=== PATIENT | male | born 1955 | race Caucasian/White ===

== ENCOUNTER 2017-12-23 09:45 | Outpatient (RCR) | payer BC, OTHER, SELFPAY ==
--- NOTE | 2017-11-03 11:07 | PT.OTN ---
Addendum entered and electronically signed by Kaycee Collins, PT 11/03/17 11:53: Transition note: On October 26, 2017 our therapy services consisting of Speech, Occupational, and Physical Therapy transitioned from the [employer] electronic documentation system to a new [employer] electronic documentation system.?? All documentation prior to October 26 can be found under [employer] saved data. From October 26 forward all medical record documentation will be in [employer] 6.1. Original Note: Current Diagnoses Unilateral primary osteoarthritis, left knee (11/03/17) Stiffness of left knee, not elsewhere classified (11/03/17) Weakness (11/03/17) Aftercare following joint replacement surgery (11/03/17) Physical Therapy Treatment Note PT-OP-A Visit Information Start: 11/03/17 10:56 Freq: Status: Active Protocol: Document 11/03/17 10:30 DCW (Rec: 11/03/17 11:05 DCW [id number]) Out-Patient Physical Therapy Visit Information Visit Information Visit Type Treatment Note Visit Note Pt requested an early end to his appointment due to conflicting plans Visit Start Time 10:30 Visit Stop Time 10:55 Total Visit Minutes 25 Visit Number 39 Number of VP CORPORATE DEVELOPMENT Visits 0 Evaluation Information Evaluation Date 05/10/18 PT-OP-C Subjective Start: 11/03/17 10:56 Freq: Status: Active Protocol: Document 11/03/17 10:30 DCW (Rec: 11/03/17 11:05 DCW [id number]) OP-PT Subjective Patient Comments Patient Comments Pt reports the lateral aspect of his left knee is still bothering him quite a bit. Patient Reported Progress Improving PT-OP-Q Treatments Start: 11/03/17 10:56 Freq: Status: Active Protocol: Document 11/03/17 10:30 DCW (Rec: 11/03/17 11:05 DCW [id number]) Cardio Equipment Recumbent Bicycle Duration (Minutes) 6 Resistance 8 Seat Position 6 Gym Equipment Shuttle Recovery Unilateral Squats Resistance 87# Shuttle Recovery Platform Stable Reps/Time 3x15 Bilateral Squats Resistance 162# Shuttle Recovery Platform Stable Reps/Time 3x15 PT-OP-R Modalities Start: 11/03/17 10:56 Freq: Status: Active Protocol: Document 11/03/17 10:30 DCW (Rec: 11/03/17 11:05 [facility] [id number]) Ultrasound Therapy Treatment Left Lateral Knee Treatment Duration (minutes) 8 Patient Position Supine Coupling Medium Ultrasound Gel Frequency Setting (mHz) 3 Mode Setting Continuous Intensity Setting (w/cm2) 1.2 Patient Tolerance Good PT-OP-T Assessment and Plan Start: 11/03/17 10:56 Freq: Status: Active Protocol: Document 11/03/17 10:30 DCW (Rec: 11/03/17 11:05 DCW [id number]) Physical Therapy Assessment Rehab Potential Rehabilitation Potential Good Impairments Impairments Balance Gait Pain ROM Soft Tissue Mobility Progress Towards Goals Progress Towards Goals Progressing Toward Goals Assessment Summary Assessment Discussed current level of function with patient today. Both therapist and patient agree that he has probably reached a bit of a progress plateau, and is likely approaching his discharge point. Pt has a trip out of state next week, and would like to keep his appointments after that in case he runs into any problems, but agrees to play it by ear after that . Physical Therapy Plan Frequency and Duration Frequency of Treatment 2x/Week Plan of Care Start Date 09/28/17 Plan of Care End Date 11/08/17 Therapeutic Interventions Therapeutic Interventions Aquatic Therapy Home Exercise Program Joint Mobilizations Manual Therapy Neuromuscular Re-education Soft Tissue Mobilization Therapeutic Activities Therapeutic Exercises Modalities Cold Pack/Ice Massage Electric Stimulation Hot Packs Ultrasound Next Visit Focus/Plan Next Visit Plan Continued ROM, strengthening, and balance training, progress plyometric exercises.
--- NOTE | 2017-11-29 10:56 | PT.OTN ---
Current Diagnoses Unilateral primary osteoarthritis, left knee (11/29/17) Stiffness of left knee, not elsewhere classified (11/29/17) Weakness (11/29/17) Aftercare following joint replacement surgery (11/29/17) Physical Therapy Treatment Note PT-OP-A Visit Information Start: 11/03/17 10:56 Freq: Status: Active Protocol: Document 11/29/17 09:45 DCW (Rec: 11/29/17 10:56 DCW [id number]) Out-Patient Physical Therapy Visit Information Visit Information Visit Type Progress Note Visit Note Pt was traveling a lot recently, and has therefore not been seen in almost one month Visit Start Time 09:45 Visit Stop Time 10:30 Total Visit Minutes 45 Visit Number 40 Number of HOME HEALTH OUTREACH COORDINATOR Visits 0 Evaluation Information Evaluation Date 05/10/18 PT-OP-B Current Condition Start: 11/29/17 10:38 Freq: Status: Active Protocol: Document 11/29/17 09:45 DCW (Rec: 11/29/17 10:56 DCW [id number]) Current Condition History of Current Condition History of Current Condition Please see Therapy [facility] for pt's complete history and initial evaluation PT-OP-C Subjective Start: 11/03/17 10:56 Freq: Status: Active Protocol: Document 11/29/17 09:45 DCW (Rec: 11/29/17 10:56 DCW [id number]) OP-PT Subjective Patient Comments Patient Comments Pt reports he thinks he would be just fine if not for the continued lateral pain along his left proximal tibia Patient Reported Progress Improving Patient Questionnaires Lower Extremity Functional Scale LEFS Score 58/80 = 72.5% LEFS Impairment 20 to 39% Impaired (Score 48- 62) OP-PT Pain Assessment Location Left Lateral Knee Pain Location Details Gerdy's Tubercle Intensity 3 Scale Used Numeric (1 - 10) PT-OP-G Mobility & Gait Start: 11/29/17 10:38 Freq: Status: Active Protocol: Document 11/29/17 09:45 DCW (Rec: 11/29/17 10:56 DCW [id number]) OP Gait Assessment Gait Gait Assistance Required: Independent Gait Deviations General Gait Pattern Within Normal Limits Stair Climbing Evaluation Evaluation Level of Assist On Stairs Independent Devices Stair Climbing Assistive Devices None PT-OP-K Range of Motion Start: 11/29/17 10:38 Freq: Status: Active Protocol: Document 11/29/17 09:45 DCW (Rec: 11/29/17 10:56 DCW [id number]) Knee Goniometric Range of Motion Knee Measured in Degrees Right Flexion Active (degrees) 130 Flexion Passive (degrees) 135 Extension Active (degrees) 2 Extension Passive (degrees) 0 Left Flexion Active (degrees) 118 Flexion Passive (degrees) 120 Extension Active (degrees) 2 Extension Passive (degrees) 0 PT-OP-M Strength Start: 11/29/17 10:38 Freq: Status: Active Protocol: Document 11/29/17 09:45 DCW (Rec: 11/29/17 10:56 DCW [id number]) Hip Strength Hip Manual Muscle Testing Right Flexion (L2) 5 Normal Abduction 5 Normal Adduction 5 Normal Left Flexion (L2) 5 Normal Abduction 5 Normal Adduction 5 Normal Knee Strength Knee Manual Muscle Testing Right Flexion (S2) 5 Normal Extension (L3) 5 Normal Left Flexion (S2) 5 Normal Extension (L3) 5 Normal PT-OP-Q Treatments Start: 11/03/17 10:56 Freq: Status: Active Protocol: Document 11/29/17 09:45 DCW (Rec: 11/29/17 10:56 DCW [id number]) Cardio Equipment Recumbent Bicycle Duration (Minutes) 6 Resistance 8 Seat Position 6 Gym Equipment Shuttle Recovery Unilateral Squats Resistance 125# Shuttle Recovery Platform Stable Reps/Time 3x15 Bilateral Squats Resistance 187# Shuttle Recovery Platform Stable Reps/Time 3x15 Shuttle Balance 1 Details Red - Staggered Stance, Lateral Weight Shift Therapeutic Exercises Standing Exercises 1 Standing Exercise Name Gastroc Stretch Side bilateral Equipment Used LUCINA Manual Therapy Treatment Manual Techniques 1 Type Passive knee ROM Body Location Left knee Body Position Supine PT-OP-R Modalities Start: 11/03/17 10:56 Freq: Status: Active Protocol: Document 11/29/17 09:45 DCW (Rec: 11/29/17 10:56 DCW [id number]) Ultrasound Therapy Treatment Left Lateral Knee Treatment Duration (minutes) 8 Patient Position Supine Coupling Medium Ultrasound Gel Frequency Setting (mHz) 3 Mode Setting Continuous Intensity Setting (w/cm2) 1.2 PT-OP-T Assessment and Plan Start: 11/03/17 10:56 Freq: Status: Active Protocol: Document 11/29/17 09:45 DCW (Rec: 11/29/17 10:56 DCW [id number]) Physical Therapy Assessment Rehab Potential Rehabilitation Potential Good Impairments Impairments Balance Gait Pain ROM Soft Tissue Mobility Goals Four Impairment ROM Short Term Goal (STG) Left knee PROM 0-120 degrees STG Duration Met Dip Tube Assembler Machine Goal (LTG) Left knee AROM 0-120 degrees LTG Duration 12/29/17 Three Impairment Strength Short Term Goal (STG) Pt left LE MMT 5/5 in all tested areas STG Duration Met Two Impairment LEFS Senior Living Goal (LTG) Pt to score 60/80 = 75% on LEFS LTG Duration 12/29/17 One Impairment Pain Dip Tube Assembler Machine Goal (LTG) Pt to report at worst 1/10 pain LTG Duration 12/29/17 Assessment Summary Assessment Pt is nearing discharge, would like a few more appointments to help decrease lateral knee pain. Pt AROM is close to goal of 0-120, however has not improved at all over his recent hiatus from therapy. Physical Therapy Plan Frequency and Duration Frequency of Treatment 2x/Week Duration of Treatment 6 weeks Plan of Care Start Date 11/29/17 Plan of Care End Date 01/09/18 Therapeutic Interventions Therapeutic Interventions Aquatic Therapy Home Exercise Program Joint Mobilizations Manual Therapy Neuromuscular Re-education Soft Tissue Mobilization Therapeutic Activities Therapeutic Exercises Modalities Cold Pack/Ice Massage Electric Stimulation Hot Packs Ultrasound Next Visit Focus/Plan Next Note Type Treatment Note Next Visit Plan Continued ROM, strengthening, and balance training, progress plyometric exercises. Please Sign and Return: I have reviewed this Plan of Care and certify that the skilled therapy services above are required to meet the patient?s needs. Physician Signature Date Printed Name and Credentials Clinical Instructor Signature Printed Name and Credentials
--- NOTE | 2017-11-29 10:57 | PT.OPPOC ---
Current Diagnoses Unilateral primary osteoarthritis, left knee (11/29/17) Stiffness of left knee, not elsewhere classified (11/29/17) Weakness (11/29/17) Aftercare following joint replacement surgery (11/29/17) Provider Visit Care Team Role Provider Type ANGELO Umanzor Primary Care Provider Advanced Practioner Clinician Specialty: Family Practice Address: [address] [place] [address], [id number] Email: [email or web address] Sudeep Suarez PA-C Attending Provider Non-Staff Specialty: Medical Address: [address] [place] [address], [id number] Phone: Fax: Email: Plan Of Care PT-OP-T Assessment and Plan Start: 11/03/17 10:56 Freq: Status: Active Protocol: Document 11/29/17 09:45 DCW (Rec: 11/29/17 10:56 DCW [id number]) Physical Therapy Assessment Rehab Potential Rehabilitation Potential Good Impairments Impairments Balance Gait Pain ROM Soft Tissue Mobility Goals Four Impairment ROM Short Term Goal (STG) Left knee PROM 0-120 degrees STG Duration Met Mcfp Goal (LTG) Left knee AROM 0-120 degrees LTG Duration 12/29/17 Three Impairment Strength Short Term Goal (STG) Pt left LE MMT 5/5 in all tested areas STG Duration Met Two Impairment LEFS Mcfp Goal (LTG) Pt to score 60/80 = 75% on LEFS LTG Duration 12/29/17 One Impairment Pain Mcfp Goal (LTG) Pt to report at worst 1/10 pain LTG Duration 12/29/17 Assessment Summary Assessment Pt is nearing discharge, would like a few more appointments to help decrease lateral knee pain. Pt AROM is close to goal of 0-120, however has not improved at all over his recent hiatus from therapy. Physical Therapy Plan Frequency and Duration Frequency of Treatment 2x/Week Duration of Treatment 6 weeks Plan of Care Start Date 11/29/17 Plan of Care End Date 01/09/18 Therapeutic Interventions Therapeutic Interventions Aquatic Therapy Home Exercise Program Joint Mobilizations Manual Therapy Neuromuscular Re-education Soft Tissue Mobilization Therapeutic Activities Therapeutic Exercises Modalities Cold Pack/Ice Massage Electric Stimulation Hot Packs Ultrasound Next Visit Focus/Plan Next Note Type Treatment Note Next Visit Plan Continued ROM, strengthening, and balance training, progress plyometric exercises. Plan of Care Dates Plan of Care Start Date 11/29/17 Plan of Care End Date 01/09/18 Please Sign and Return: I have reviewed this Plan of Care and certify that the skilled therapy services above are required to meet the patient?s needs. Physician Signature Date Printed Name and Credentials Clinical Instructor Signature Printed Name and Credentials
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
--- NOTE | 2017-12-16 10:29 | PT.OTN ---
Current Diagnoses Unilateral primary osteoarthritis, left knee (12/16/17) Stiffness of left knee, not elsewhere classified (12/16/17) Weakness (12/16/17) Aftercare following joint replacement surgery (12/16/17) Physical Therapy Treatment Note PT-OP-A Visit Information Start: 11/03/17 10:56 Freq: Status: Active Protocol: Document 12/16/17 09:45 DCW (Rec: 12/16/17 10:29 DCW [id number]) Out-Patient Physical Therapy Visit Information Visit Information Visit Type Treatment Note Visit Start Time 09:45 Visit Stop Time 10:30 Total Visit Minutes 45 Visit Number 42 Number of LINUX SYSTEM ADMINISTRATOR Visits 0 Evaluation Information Evaluation Date 05/10/17 PT-OP-B Current Condition Start: 11/29/17 10:38 Freq: Status: Active Protocol: Document 11/29/17 09:45 DCW (Rec: 11/29/17 10:56 DCW [id number]) Current Condition History of Current Condition History of Current Condition Please see Therapy Source for pt's complete history and initial evaluation PT-OP-C Subjective Start: 11/03/17 10:56 Freq: Status: Active Protocol: Document 12/16/17 09:45 DCW (Rec: 12/16/17 10:29 DCW [id number]) OP-PT Subjective Patient Comments Patient Comments Pt reports he has spent the past 10 [place] [facility], and everything went well. Pt could notice fatigue and pain setting in as the day wore on, but overall was happy with how things went. Pt admits his lateral knee still bothers him most when sleeping. PT-OP-Q Treatments Start: 11/03/17 10:56 Freq: Status: Active Protocol: Document 12/16/17 09:45 DCW (Rec: 12/16/17 10:29 DCW [id number]) Cardio Equipment Recumbent Bicycle Duration (Minutes) 6 Resistance 8 Seat Position 3 Gym Equipment Shuttle Recovery Unilateral Squats Resistance 125# Shuttle Recovery Platform Stable Reps/Time 3x15 Bilateral Squats Resistance 187# Shuttle Recovery Platform Stable Reps/Time 3x15 Shuttle Balance 1 Details Red - Staggered Stance, Lateral Weight Shift Therapeutic Exercises Standing Exercises 2 Standing Exercise Name Soleus Stretch Resistance bilateral Reps/Minutes LUCINA 1 Standing Exercise Name Gastroc Stretch Side bilateral Equipment Used LUCINA Other Exercises 3 Other Exercise Name Lateral Single-leg hopping 1 Other Exercise Name Lunge walking Side bilateral Reps/Minutes x4 laps along rail Neuro Re-Education Treatment Balance Activities 1 Details SLS on Air Disc Equipment Teal Air Disc PT-OP-R Modalities Start: 11/03/17 10:56 Freq: Status: Active Protocol: Document 12/16/17 09:45 DCW (Rec: 12/16/17 10:29 DCW [id number]) Ultrasound Therapy Treatment Left Lateral Knee Treatment Duration (minutes) 8 Patient Position Supine Coupling Medium Ultrasound Gel Frequency Setting (mHz) 3 Mode Setting Continuous Intensity Setting (w/cm2) 1.2 PT-OP-T Assessment and Plan Start: 11/03/17 10:56 Freq: Status: Active Protocol: Document 12/16/17 09:45 DCW (Rec: 12/16/17 10:29 DCW [id number]) Physical Therapy Assessment Rehab Potential Rehabilitation Potential Good Impairments Impairments Balance Gait Pain ROM Soft Tissue Mobility Goals Four Impairment ROM Short Term Goal (STG) Left knee PROM 0-120 degrees STG Duration Met Senior Living Goal (LTG) Left knee AROM 0-120 degrees LTG Duration 12/29/17 Three Impairment Strength Short Term Goal (STG) Pt left LE MMT 5/5 in all tested areas STG Duration Met Two Impairment LEFS Machine Set Up Operator Goal (LTG) Pt to score 60/80 = 75% on LEFS LTG Duration 12/29/17 One Impairment Pain Senior Living Goal (LTG) Pt to report at worst 1/10 pain LTG Duration 12/29/17 Assessment Summary Assessment Pt continues to improve. After discussion between patient and therapist, pt agreed that discharge following next week' s appointments is a good idea. Physical Therapy Plan Frequency and Duration Frequency of Treatment 2x/Week Duration of Treatment 6 weeks Plan of Care Start Date 11/29/17 Plan of Care End Date 01/09/18 Therapeutic Interventions Therapeutic Interventions Aquatic Therapy Home Exercise Program Joint Mobilizations Manual Therapy Neuromuscular Re-education Soft Tissue Mobilization Therapeutic Activities Therapeutic Exercises Modalities Cold Pack/Ice Massage Electric Stimulation Hot Packs Ultrasound Next Visit Focus/Plan Next Note Type Treatment Note Next Visit Plan Continued ROM, strengthening, and balance training, progress plyometric exercises.
--- NOTE | 2017-12-20 10:29 | PT.OTN ---
Current Diagnoses Unilateral primary osteoarthritis, left knee (12/20/17) Stiffness of left knee, not elsewhere classified (12/20/17) Weakness (12/20/17) Aftercare following joint replacement surgery (12/20/17) Physical Therapy Treatment Note PT-OP-A Visit Information Start: 11/03/17 10:56 Freq: Status: Active Protocol: Document 12/20/17 09:45 DCW (Rec: 12/20/17 10:29 DCW [id number]) Out-Patient Physical Therapy Visit Information Visit Information Visit Type Treatment Note Visit Start Time 09:45 Visit Stop Time 10:30 Total Visit Minutes 45 Visit Number 43 Number of SPORTS EQUIPMENT RACKER Visits 0 Evaluation Information Evaluation Date 05/10/17 PT-OP-B Current Condition Start: 11/29/17 10:38 Freq: Status: Active Protocol: Document 11/29/17 09:45 DCW (Rec: 11/29/17 10:56 DCW [id number]) Current Condition History of Current Condition History of Current Condition Please see Therapy Source for pt's complete history and initial evaluation PT-OP-C Subjective Start: 11/03/17 10:56 Freq: Status: Active Protocol: Document 12/20/17 09:45 DCW (Rec: 12/20/17 10:29 DCW [id number]) OP-PT Subjective Patient Comments Patient Comments Pt continues to complain of lateral knee pain, but everything else is going very well. PT-OP-Q Treatments Start: 11/03/17 10:56 Freq: Status: Active Protocol: Document 12/20/17 09:45 DCW (Rec: 12/20/17 10:29 DCW [id number]) Cardio Equipment Recumbent Bicycle Duration (Minutes) 6 Resistance 8 Seat Position 3 Gym Equipment Shuttle Recovery Unilateral Squats Resistance 125# Shuttle Recovery Platform Stable Reps/Time 3x15 Bilateral Squats Resistance 187# Shuttle Recovery Platform Stable Reps/Time 3x15 Shuttle Balance 1 Details Red - Staggered Stance, Lateral Weight Shift Therapeutic Exercises Standing Exercises 2 Standing Exercise Name Soleus Stretch Resistance bilateral Reps/Minutes LUCINA 1 Standing Exercise Name Gastroc Stretch Side bilateral Equipment Used LUCINA Other Exercises 3 Other Exercise Name Lateral Single-leg hopping 1 Other Exercise Name Lunge walking Side bilateral Reps/Minutes x4 laps along rail Neuro Re-Education Treatment Balance Activities 1 Details SLS on Air Disc Equipment Teal Air Disc PT-OP-R Modalities Start: 11/03/17 10:56 Freq: Status: Active Protocol: Document 12/20/17 09:45 DCW (Rec: 12/20/17 10:29 DCW [id number]) Ultrasound Therapy Treatment Left Lateral Knee Treatment Duration (minutes) 8 Patient Position Supine Coupling Medium Ultrasound Gel Frequency Setting (mHz) 3 Mode Setting Continuous Intensity Setting (w/cm2) 1.2 PT-OP-T Assessment and Plan Start: 11/03/17 10:56 Freq: Status: Active Protocol: Document 12/20/17 09:45 DCW (Rec: 12/20/17 10:29 DCW [id number]) Physical Therapy Assessment Rehab Potential Rehabilitation Potential Good Impairments Impairments Balance Gait Pain ROM Soft Tissue Mobility Goals Four Impairment ROM Short Term Goal (STG) Left knee PROM 0-120 degrees STG Duration Met Web Ui Designer Goal (LTG) Left knee AROM 0-120 degrees LTG Duration 12/29/17 Three Impairment Strength Short Term Goal (STG) Pt left LE MMT 5/5 in all tested areas STG Duration Met Two Impairment LEFS Web Ui Designer Goal (LTG) Pt to score 60/80 = 75% on LEFS LTG Duration 12/29/17 One Impairment Pain Web Ui Designer Goal (LTG) Pt to report at worst 1/10 pain LTG Duration 12/29/17 Assessment Summary Assessment Pt is still agreeable to discharge following his nexty visit. Shows great progress in ROM and strength, only continuing deficit is lateral knee pain. Physical Therapy Plan Frequency and Duration Frequency of Treatment 2x/Week Duration of Treatment 6 weeks Plan of Care Start Date 11/29/17 Plan of Care End Date 01/09/18 Therapeutic Interventions Therapeutic Interventions Aquatic Therapy Home Exercise Program Joint Mobilizations Manual Therapy Neuromuscular Re-education Soft Tissue Mobilization Therapeutic Activities Therapeutic Exercises Modalities Cold Pack/Ice Massage Electric Stimulation Hot Packs Ultrasound Next Visit Focus/Plan Next Note Type Discharge Summary Next Visit Plan Continue ongoing POC
--- NOTE | 2017-12-23 10:17 | PT.OTN ---
Current Diagnoses Unilateral primary osteoarthritis, left knee (12/23/17) Stiffness of left knee, not elsewhere classified (12/23/17) Weakness (12/23/17) Aftercare following joint replacement surgery (12/23/17) Physical Therapy Treatment Note PT-OP-A Visit Information Start: 11/03/17 10:56 Freq: Status: Active Protocol: Document 12/23/17 09:45 DCW (Rec: 12/23/17 10:17 DCW [id number]) Out-Patient Physical Therapy Visit Information Visit Information Visit Type Discharge Summary Visit Note Pt requests early finish to today's appointment, as he has oral surgery scheduled shortly afterward. Visit Start Time 09:45 Visit Stop Time 10:15 Total Visit Minutes 30 Visit Number 44 Number of ELECTRONICS ASSEMBLER Visits 0 Evaluation Information Evaluation Date 05/10/17 PT-OP-B Current Condition Start: 11/29/17 10:38 Freq: Status: Active Protocol: Document 11/29/17 09:45 DCW (Rec: 11/29/17 10:56 DCW [id number]) Current Condition History of Current Condition History of Current Condition Please see Therapy Source for pt's complete history and initial evaluation PT-OP-C Subjective Start: 11/03/17 10:56 Freq: Status: Active Protocol: Document 12/23/17 09:45 DCW (Rec: 12/23/17 10:17 DCW [id number]) OP-PT Subjective Patient Comments Patient Comments Doing well today, although he does note a little increased stiffness following a seven mile walk last night. PT-OP-G Mobility & Gait Start: 11/29/17 10:38 Freq: Status: Active Protocol: Document 11/29/17 09:45 DCW (Rec: 11/29/17 10:56 DCW [id number]) OP Gait Assessment Gait Gait Assistance Required: Independent Gait Deviations General Gait Pattern Within Normal Limits Stair Climbing Evaluation Evaluation Level of Assist On Stairs Independent Devices Stair Climbing Assistive Devices None PT-OP-K Range of Motion Start: 11/29/17 10:38 Freq: Status: Active Protocol: Document 12/23/17 09:45 DCW (Rec: 12/23/17 10:17 DCW [id number]) Knee Goniometric Range of Motion Knee Measured in Degrees Left Flexion Active (degrees) 118 Flexion Passive (degrees) 124 Extension Active (degrees) 2 Extension Passive (degrees) 0 PT-OP-M Strength Start: 11/29/17 10:38 Freq: Status: Active Protocol: Document 11/29/17 09:45 DCW (Rec: 11/29/17 10:56 DCW [id number]) Hip Strength Hip Manual Muscle Testing Right Flexion (L2) 5 Normal Abduction 5 Normal Adduction 5 Normal Left Flexion (L2) 5 Normal Abduction 5 Normal Adduction 5 Normal Knee Strength Knee Manual Muscle Testing Right Flexion (S2) 5 Normal Extension (L3) 5 Normal Left Flexion (S2) 5 Normal Extension (L3) 5 Normal PT-OP-Q Treatments Start: 11/03/17 10:56 Freq: Status: Active Protocol: Document 12/23/17 09:45 DCW (Rec: 12/23/17 10:17 DCW [id number]) Cardio Equipment Recumbent Bicycle Duration (Minutes) 6 Resistance 8 Seat Position 3 Manual Therapy Treatment Manual Techniques 1 Type Passive knee ROM Body Location Left knee Body Position Supine PT-OP-R Modalities Start: 11/03/17 10:56 Freq: Status: Active Protocol: Document 12/23/17 09:45 DCW (Rec: 12/23/17 10:17 DCW [id number]) Ultrasound Therapy Treatment Left Lateral Knee Treatment Duration (minutes) 8 Patient Position Supine Coupling Medium Ultrasound Gel Frequency Setting (mHz) 3 Mode Setting Continuous Duty Cycle 50% Intensity Setting (w/cm2) 1.2 PT-OP-T Assessment and Plan Start: 11/03/17 10:56 Freq: Status: Active Protocol: Document 12/23/17 09:45 DCW (Rec: 12/23/17 10:17 DCW [id number]) Physical Therapy Assessment Impairments Impairments Balance Gait Pain ROM Soft Tissue Mobility Goals Four Impairment ROM Short Term Goal (STG) Left knee PROM 0-120 degrees STG Duration Met After School Program Assistant Goal (LTG) Left knee AROM 0-120 degrees LTG Duration 12/29/17 Three Impairment Strength Short Term Goal (STG) Pt left LE MMT 5/5 in all tested areas STG Duration Met Two Impairment LEFS After School Program Assistant Goal (LTG) Pt to score 60/80 = 75% on LEFS LTG Duration 12/29/17 One Impairment Pain Assisted Goal (LTG) Pt to report at worst 1/10 pain LTG Duration 12/29/17 Progress Towards Goals Progress Towards Goals Progressing Toward Goals Assessment Summary Assessment Pt discharging at this time. Pt has met a majority of his goals, although he has reached a progress plateau with his ROM at 118 degrees active flexion Physical Therapy Plan Frequency and Duration Frequency of Treatment 2x/Week Duration of Treatment 6 weeks Plan of Care Start Date 11/29/17 Plan of Care End Date 01/09/18 Therapeutic Interventions Therapeutic Interventions Aquatic Therapy Home Exercise Program Joint Mobilizations Manual Therapy Neuromuscular Re-education Soft Tissue Mobilization Therapeutic Activities Therapeutic Exercises Modalities Cold Pack/Ice Massage Electric Stimulation Hot Packs Ultrasound Discharge Physical Therapy Discharge Reasons Plateau in Progress
--- NOTE | 2017-12-23 10:18 | PT.OPDS ---
Current Diagnoses Unilateral primary osteoarthritis, left knee (12/23/17) Stiffness of left knee, not elsewhere classified (12/23/17) Weakness (12/23/17) Aftercare following joint replacement surgery (12/23/17) Provider Visit Care Team Role Provider Type ANGELO Umanzor Primary Care Provider Advanced Practioner Clinician Specialty: Family Practice Address: [address] [place] [address], [id number] Email: [email or web address] Sudeep Suarez PA-C Attending Provider Non-Staff Specialty: Medical Address: [address] [place] [address], [address] Phone: Fax: Email: Visit Number Visit Number 44 Discharge Summary PT-OP-B Current Condition Start: 11/29/17 10:38 Freq: Status: Active Protocol: Document 11/29/17 09:45 DCW (Rec: 11/29/17 10:56 DCW [id number]) Current Condition History of Current Condition History of Current Condition Please see Therapy Source for pt's complete history and initial evaluation PT-OP-C Subjective Start: 11/03/17 10:56 Freq: Status: Active Protocol: Document 12/23/17 09:45 DCW (Rec: 12/23/17 10:17 DCW [id number]) OP-PT Subjective Patient Comments Patient Comments Doing well today, although he does note a little increased stiffness following a seven mile walk last night. PT-OP-G Mobility & Gait Start: 11/29/17 10:38 Freq: Status: Active Protocol: Document 11/29/17 09:45 DCW (Rec: 11/29/17 10:56 DCW [id number]) OP Gait Assessment Gait Gait Assistance Required: Independent Gait Deviations General Gait Pattern Within Normal Limits Stair Climbing Evaluation Evaluation Level of Assist On Stairs Independent Devices Stair Climbing Assistive Devices None PT-OP-K Range of Motion Start: 11/29/17 10:38 Freq: Status: Active Protocol: Document 12/23/17 09:45 DCW (Rec: 12/23/17 10:17 DCW [id number]) Knee Goniometric Range of Motion Knee Measured in Degrees Left Flexion Active (degrees) 118 Flexion Passive (degrees) 124 Extension Active (degrees) 2 Extension Passive (degrees) 0 PT-OP-M Strength Start: 11/29/17 10:38 Freq: Status: Active Protocol: Document 11/29/17 09:45 DCW (Rec: 11/29/17 10:56 DCW [id number]) Hip Strength Hip Manual Muscle Testing Right Flexion (L2) 5 Normal Abduction 5 Normal Adduction 5 Normal Left Flexion (L2) 5 Normal Abduction 5 Normal Adduction 5 Normal Knee Strength Knee Manual Muscle Testing Right Flexion (S2) 5 Normal Extension (L3) 5 Normal Left Flexion (S2) 5 Normal Extension (L3) 5 Normal PT-OP-T Assessment and Plan Start: 11/03/17 10:56 Freq: Status: Active Protocol: Document 12/23/17 09:45 DCW (Rec: 12/23/17 10:17 DCW [id number]) Physical Therapy Assessment Impairments Impairments Balance Gait Pain ROM Soft Tissue Mobility Goals Four Impairment ROM Short Term Goal (STG) Left knee PROM 0-120 degrees STG Duration Met Cardiovascular Specialist Goal (LTG) Left knee AROM 0-120 degrees LTG Duration 12/29/17 Three Impairment Strength Short Term Goal (STG) Pt left LE MMT 5/5 in all tested areas STG Duration Met Two Impairment LEFS Cardiovascular Specialist Goal (LTG) Pt to score 60/80 = 75% on LEFS LTG Duration 12/29/17 One Impairment Pain Cardiovascular Specialist Goal (LTG) Pt to report at worst 1/10 pain LTG Duration 12/29/17 Progress Towards Goals Progress Towards Goals Progressing Toward Goals Assessment Summary Assessment Pt discharging at this time. Pt has met a majority of his goals, although he has reached a progress plateau with his ROM at 118 degrees active flexion Physical Therapy Plan Frequency and Duration Frequency of Treatment 2x/Week Duration of Treatment 6 weeks Plan of Care Start Date 11/29/17 Plan of Care End Date 01/09/18 Therapeutic Interventions Therapeutic Interventions Aquatic Therapy Home Exercise Program Joint Mobilizations Manual Therapy Neuromuscular Re-education Soft Tissue Mobilization Therapeutic Activities Therapeutic Exercises Modalities Cold Pack/Ice Massage Electric Stimulation Hot Packs Ultrasound Discharge Physical Therapy Discharge Reasons Plateau in Progress
== END 2017-12-24 10:14 ==
LOC: PHYS 09:45
PROVIDERS: PCP Internal Medicine; Visit Provider Physician Assistant
DX: M17.12 Unilateral primary osteoarthritis, left knee (principal); Z47.1 Aftercare following joint replacement surgery; R53.1 Weakness; M25.662 Stiffness of left knee, not elsewhere classified
CPT/HCPCS: 97035; 97110; 97112; 97140

== ENCOUNTER → 2019-02-20 08:40 | Outpatient (CLI) | payer MEDICARE, OTHER, SELFPAY ==
[2019-02-20 09:16] LABS: Add Manual Diff / Slide Review NO; Basophils Absolute Auto 100 /uL (0-100); Basophils Percent Auto 0.9 % (0-2); Eosinophils Absolute Auto 200 /uL (0-450); Eosinophils Percent Auto 2.7 % (2-4); Hematocrit 37.6 % (41-53); Hemoglobin 12.1 g/dL (13.5-17.5); Lymphocytes Absolute Auto 2200 /uL (1100-4500); Lymphocytes Percent Auto 34.8 % (25-40); Mean Corpuscular HGB Conc 32.1 % (30-36); Mean Corpuscular Hemoglobin 23.9 PG (26-34); Mean Corpuscular Volume 74.5 fL (80-100); Monocytes Absolute Auto 400 /uL (0-900); Neutrophils Absolute Auto 3500 /uL (1500-7000); Neutrophils Percent Auto 54.6 % (50-75); Platelet Count 237 X10^3/uL (150-400); Red Blood Cell Count 5.05 X10^6/uL (4.5-5.9); Red Cell Distribution Width 22.6 % (11.6-14.8); White Blood Cell Count 6.4 X10^3/uL (4.5-11.0)
[2019-02-20 09:18] LABS: Reticulocyte Count, Percent 0.8 % (0.87-2.60)
[2019-02-20 09:35] LABS: Blood Urea Nitrogen 18 mg/dL (9-20); Calcium 8.9 mg/dL (8.4-10.2); Carbon Dioxide 23 mmol/L (22-32); Chloride 108 mmol/L (98-107); Cholesterol 143 mg/dL (140-199); Estimated Glomerular Filt Rate > 60.0 mL/min (>60); Glucose 120 mg/dL (80-110); HDL Cholesterol 35 mg/dL (40-60); HEMOLYSIS < 15 (0-50); LDL Cholesterol Calculated 85 mg/dL (<100); Potassium 4.4 mmol/L (3.4-5.1); Sodium 139 mmol/L (137-145); Triglycerides 113 mg/dL (35-150)
[2019-02-20 10:03] LABS: Prostate Specific Antigen Scrn 0.444 ng/mL (0.1-4.0)
[2019-02-20 10:11] LABS: Vitamin D 25 Hydroxy (D3) 26.9 ng/mL (30.0-100.0)
[2019-02-20 10:57] LABS: Anisocytosis 2+; Hypochromasia 2+; Poikilocytosis 2+
== END ==
PROVIDERS: PCP Student in an Organized Health Care Education/Training Program; Visit Provider Student in an Organized Health Care Education/Training Program
DX: I10 Essential (primary) hypertension (principal); Z87.19 Personal history of other diseases of the digestive system; Z12.5 Encounter for screening for malignant neoplasm of prostate; K92.2 Gastrointestinal hemorrhage, unspecified; T39.395A Adverse effect of other nonsteroidal anti-inflammatory drugs [NSAID], initial encounter; E55.9 Vitamin D deficiency, unspecified
CPT/HCPCS: 36415; 80048; 80061; 82306; 85025; 85045; G0103

== ENCOUNTER → 2019-09-01 14:48 | Outpatient (CLI) | payer MEDICARE, OTHER, SELFPAY ==
--- NOTE | 2019-09-01 14:58 | DI.CT.S_ITS ---
PROCEDURE: CT LE RT WO CON INDICATIONS: Ankle swelling w/ fever, no trauma. TECHNIQUE: Noncontrast 1-1.5 mm axial sections acquired from above the tibiotalar joint to the bottom of the calcaneus, with coronal and sagittal reformats. COMPARISON: None. FINDINGS: Image quality: Excellent. No fracture or focal osseous destruction is seen. There is anatomic alignment. Chronic ossicle adjacent to the tip of the lateral malleolus. There also chronic small os navicular. Soft tissue swelling and subcutaneous cellulitis overlying the lateral malleolus. Loose body seen at the lateral aspect of the tibiotalar joint for example image 159/8, measuring 3 mm. IMPRESSION: Superficial cellulitis involving the lateral ankle. No underlying focal osseous destruction to suggest advanced osteomyelitis, although there is persistent clinical suspicion continued surveillance with ankle radiographs could be performed versus MRI Chronic degenerative changes as above Dictated by: Andrews Mandujano M.D. on 09/01/2019 at 15:56 Approved by: Andrews Mandujano M.D. on 09/01/2019 at 16:02
== END ==
PROVIDERS: PCP Student in an Organized Health Care Education/Training Program; Referring Provider Student in an Organized Health Care Education/Training Program; Visit Provider Student in an Organized Health Care Education/Training Program
DX: M25.471 Effusion, right ankle (principal); R50.9 Fever, unspecified; L03.116 Cellulitis of left lower limb
CPT/HCPCS: 73700

== ENCOUNTER → 2019-11-28 12:01 | Outpatient (CLI) | payer MEDICARE, OTHER, SELFPAY ==
[2019-11-28 13:54] LABS: Hematocrit 43.8 % (41-53); Hemoglobin 15.3 g/dL (13.5-17.5); Mean Corpuscular HGB Conc 34.8 % (30-36); Mean Corpuscular Hemoglobin 33.1 PG (26-34); Platelet Count 193 X10^3/uL (150-400); Red Blood Cell Count 4.61 X10^6/uL (4.5-5.9); Red Cell Distribution Width 13.9 % (11.6-14.8); White Blood Cell Count 5.5 X10^3/uL (4.5-11.0)
[2019-11-28 14:19] LABS: Alanine Aminotransferase 68 IU/L (<50); Albumin 4.6 g/dL (3.5-5.0); Albumin Globulin Ratio 1.4 (1.0-2.8); Alkaline Phosphatase 107 U/L (38-126); Aspartate Aminotransferase 54 IU/L (17-59); BUN Creatinine Ratio 21.7 (6-22); Bilirubin Total 1.2 mg/dL (0.2-1.3); Blood Urea Nitrogen 18 mg/dL (9-20); Calcium 9.8 mg/dL (8.4-10.2); Carbon Dioxide 25 mmol/L (22-32); Chloride 104 mmol/L (98-107); Estimated Glomerular Filt Rate > 60.0 mL/min (>60); Globulin 3.2 g/dL (1.7-4.1); Glucose 112 mg/dL (80-110); HEMOLYSIS < 15 (0-50); Iron 162 ug/dL (49-181); Potassium 4.4 mmol/L (3.4-5.1); Sodium 140 mmol/L (137-145); Total Protein 7.8 g/dL (6.3-8.2)
[2019-11-28 14:30] LABS: Percent Iron Saturation 42 % (20-50); Total Iron Binding Capacity 388 ug/dL (261-462); Transferrin 280 mg/dL (206-381)
[2019-11-28 17:07] LABS: Vitamin D 25 Hydroxy (D3) 54.4 ng/mL (30.0-100.0)
== END ==
PROVIDERS: PCP Student in an Organized Health Care Education/Training Program; Referring Provider Student in an Organized Health Care Education/Training Program; Visit Provider Student in an Organized Health Care Education/Training Program
DX: E55.9 Vitamin D deficiency, unspecified (principal); D50.9 Iron deficiency anemia, unspecified; I10 Essential (primary) hypertension; Z87.19 Personal history of other diseases of the digestive system
CPT/HCPCS: 36415; 80048; 80076; 82306; 83540; 83550; 85027

== ENCOUNTER → 2020-10-16 14:33 | Outpatient (CLI) | payer MEDICARE, OTHER, SELFPAY ==
[2020-10-16 14:52] LABS: Hematocrit 45.1 % (41-53); Hemoglobin 15.6 g/dL (13.5-17.5); Mean Corpuscular HGB Conc 34.4 % (30-36); Mean Corpuscular Hemoglobin 32.9 PG (26-34); Mean Corpuscular Volume 95.5 fL (80-100); Platelet Count 222 X10^3/uL (150-400); Red Blood Cell Count 4.73 X10^6/uL (4.5-5.9); Red Cell Distribution Width 12.5 % (11.6-14.8); White Blood Cell Count 7.6 X10^3/uL (4.5-11.0)
[2020-10-16 15:00] LABS: HEMOLYSIS < 15 (0-50); Potassium 4.2 mmol/L (3.4-5.1)
[2020-10-16 15:01] LABS: BUN Creatinine Ratio 22.4 (6-22); Blood Urea Nitrogen 17 mg/dL (9-20); Calcium 9.6 mg/dL (8.4-10.2); Carbon Dioxide 21 mmol/L (22-32); Chloride 106 mmol/L (98-107); Estimated Glomerular Filt Rate > 60.0 mL/min (>60); Glucose 112 mg/dL (80-110); Sodium 138 mmol/L (137-145)
[2020-10-16 15:30] LABS: Prostate Specific Antigen Scrn 0.607 ng/mL (0.1-4.0)
== END ==
PROVIDERS: PCP Student in an Organized Health Care Education/Training Program; Referring Provider Student in an Organized Health Care Education/Training Program; Visit Provider Student in an Organized Health Care Education/Training Program
DX: I10 Essential (primary) hypertension (principal); Z12.5 Encounter for screening for malignant neoplasm of prostate; Z79.1 Long term (current) use of non-steroidal anti-inflammatories (NSAID); D50.9 Iron deficiency anemia, unspecified
CPT/HCPCS: 36415; 80048; 85027; G0103

== ENCOUNTER 2020-11-23 10:20 | Emergency (ER) | payer MEDICARE, OTHER, SELFPAY ==
[2020-11-23 10:22] VITALS: BP 160/98; PULSE 80; RESP 16; TEMP 36.9; O2SAT 97; BMI 31.5
[2020-11-23 10:27] VITALS: PULSE 82; O2SAT 97
[2020-11-23 10:30] VITALS: PULSE 75; O2SAT 95
[2020-11-23 10:44] LABS: Add Manual Diff / Slide Review NO; Basophils Absolute Auto 100 /uL (0-100); Basophils Percent Auto 0.7 % (0-2); Eosinophils Absolute Auto 100 /uL (0-450); Eosinophils Percent Auto 1.3 % (2-4); Hematocrit 48.7 % (41-53); Hemoglobin 16.6 g/dL (13.5-17.5); Lymphocytes Absolute Auto 2600 /uL (1100-4500); Lymphocytes Percent Auto 25.5 % (25-40); Mean Corpuscular Hemoglobin 32.5 PG (26-34); Mean Corpuscular Volume 95.6 fL (80-100); Monocytes Absolute Auto 700 /uL (0-900); Neutrophils Absolute Auto 6600 /uL (1500-7000); Neutrophils Percent Auto 65.5 % (50-75); Platelet Count 217 X10^3/uL (150-400); White Blood Cell Count 10.1 X10^3/uL (4.5-11.0)
[2020-11-23 10:56] LABS: Alanine Aminotransferase 51 IU/L (<50); Albumin 4.6 g/dL (3.5-5.0); Albumin Globulin Ratio 1.4 (1.0-2.8); Alkaline Phosphatase 75 U/L (38-126); Aspartate Aminotransferase 50 IU/L (17-59); BUN Creatinine Ratio 14.8 (6-22); Bilirubin Total 2.1 mg/dL (0.2-1.3); Blood Urea Nitrogen 12 mg/dL (9-20); Calcium 9.5 mg/dL (8.4-10.2); Carbon Dioxide 20 mmol/L (22-32); Chloride 107 mmol/L (98-107); Estimated Glomerular Filt Rate > 60.0 mL/min (>60); Globulin 3.4 g/dL (1.7-4.1); Glucose 120 mg/dL (80-110); HEMOLYSIS < 15 (0-50); Potassium 4.1 mmol/L (3.4-5.1); Sodium 139 mmol/L (137-145)
[2020-11-23 11:00] VITALS: BP 138/85; PULSE 79; O2SAT 95
--- NOTE | 2020-11-23 11:00 | ED_ITS ---
HPI - GI Bleed General Chief complaint: GI Bleed Stated complaint: stomach pain blood in stool Time Seen by Provider: 11/23/20 10:50 Source: patient Mode of arrival: Ambulatory Limitations: no limitations History of Present Illness HPI Narrative: Patient denies any chest pain dizziness or syncope or dyspnea. Patient complains of left-sided abdominal pain with bright red blood per rectum 3 episodes since yesterday morning. History of diverticulosis. Patient states he ate popcorn a few days ago. Feels like diverticulitis again. Not on any blood thinners. No recent illness fever chills cough cold or congestion. Related Data Home Medications Medication Instructions Recorded Confirmed prpypvll-spsc-MT-calcium-mins PO Q DAY #0 09/10/17 10/16/20 [Thera M Plus (ferrous fumarat)] aspirin 81 mg tablet,delayed 81 mg PO DAILY 07/01/18 10/16/20 release Previous Rx's Medication Instructions Recorded omeprazole 20 mg tablet,delayed 20 mg PO DAILY #90 tab 02/12/20 release tizanidine 4 mg tablet 4 mg PO BID PRN #60 tab 10/16/20 ciprofloxacin HCl 500 mg PO BID #10 tab 11/23/20 Allergies Allergy/AdvReac Type Severity Reaction Status Date / Time No Known Drug Allergies Allergy Verified 11/23/20 10:36 Review of Systems Review of Systems Narrative: GENERAL: Denies chills, fatigue, malaise, fever, sweats. HEENT: Denies sinus pain, ear pain, sore throat RESPIRATORY: Denies dyspnea, cough CARDIOVASCULAR: Denies chest pain, palpitations no syncope GASTROINTESTINAL: Complains nausea, denies vomiting, complains of rectal bleed and abdominal pain : Denies dysuria, frequency, hematuria MUSCULOSKELETAL: denies muscle or bony pain SKIN: Denies rash, skin lesions no dizziness NEUROLOGIC: Denies weakness, numbness ROS Unobtainable: All systems reviewed & are unremarkable except as noted in HPI and below Patient History Medical History Chronic back pain (~1979) Diverticular disease (~2009) Hearing loss Iron deficiency anemia Lumbar disc disease (~1979) Shoulder pain (~1979) Sleep apnea (~2004) Tinnitus Vitamin D insufficiency Surgical History Anesthesia History of knee surgery (~2012) Family History Father Stroke Diabetes mellitus Mother Age: 89 Breast cancer Social History Smoking Status: Never smoker Smoking Status: Never smoker alcohol intake frequency: 0-2 drinks per day Alcohol type: hard liquor Substance Use Type: does not use Exam Narrative Exam Narrative: GENERAL: in no distress, not toxic not dyspneic HEAD: Normocephalic. EYES: Pupils equal round No scleral icterus. No injection no discharge, pink conjunctiva ENT: Mucous membranes moist. No blue lips or tongue NECK: Trachea midline. CARDIOVASCULAR: Regular rate and rhythm without murmurs RESPIRATORY: Clear to auscultation. Breath sounds equal bilaterally. No wheezes, rales, or rhonchi. GASTROINTESTINAL: Abdomen soft, left side upper and lower quadrant abdominal tenderness no peritoneal signs bowel sounds present. EXTREMITIES: No gross deformities. BACK: No flank tenderness. NEURO: AOx4. SKIN: Warm and dry PSYCH: Not anxious, is cooperative Initial Vital Signs Initial Vital Signs: Vital Signs Temperature 98.5 F 11/23/20 10:22 Pulse Rate 80 11/23/20 10:22 Respiratory Rate 16 11/23/20 10:22 Blood Pressure 160/98 H 11/23/20 10:22 Pulse Oximetry 97 11/23/20 10:22 Course Course Course Narrative: No new issues during course of stay Orders Ordered: Discontinued Medications Ciprofloxacin (Ciprofloxacin 250 Mg Tablet) 500 mg PO NOW ONE Stop: 11/23/20 11:54 Last Admin: 11/23/20 12:17 Dose: 500 mg Documented by: CEDRIC Sodium Chloride (Normal Saline 0.9%) 500 mls @ 1,000 mls/hr IV BOLUS ONE Stop: 11/23/20 11:29 Last Infusion: 11/23/20 12:24 Dose: 0 mls/hr Documented by: Admin: 11/23/20 11:41 Dose: 1,000 mls/hr Documented by: KARAN Reevaluation(s) Reevaluation #1: Reviewed results with patient. Does not want to be admitted. He desires outpatient antibiotics and follow up with primary care. Pain controlled. Time: 11:55 Vital Signs Vital signs: Vital Signs - 8 hr 11/23/20 10:22 11/23/20 10:27 11/23/20 10:30 Temperature 98.5 F Pulse Rate 80 82 75 Respiratory Rate 16 Blood Pressure 160/98 H Pulse Oximetry 97 97 95 11/23/20 11:00 11/23/20 11:30 Temperature Pulse Rate 79 66 Respiratory Rate Blood Pressure 138/85 Pulse Oximetry 95 95 MDM - GI Bleed Differential Diagnosis Differential diagnosis: Likely Lower gastrointestinal hemorrhage, hematochezia, melena and other (Diverticulitis/diverticulosis) Lab Data Attestation: I reviewed the patient's lab results. Result diagrams: 11/23/20 10:32 11/23/20 10:32 Labs: Lab Results 11/23/20 11/23/20 11/23/20 Range/Units 10:32 10:32 10:32 WBC 10.1 (4.5-11.0) X10^3/uL RBC 5.10 (4.5-5.9) X10^6/uL Hgb 16.6 (13.5-17.5) g/dL Hct 48.7 (41-53) % MCV 95.6 (80-100) fL MCH 32.5 (26-34) PG MCHC 34.0 (30-36) % RDW 13.0 (11.6-14.8) % Plt Count 217 (150-400) X10^3/uL Neut % (Auto) 65.5 (50-75) % Lymph % (Auto) 25.5 (25-40) % Cole % (Auto) 7.0 (3-14) % Eos % (Auto) 1.3 L (2-4) % Baso % (Auto) 0.7 (0-2) % Neut # (Auto) 6600 (1285-7922) /uL Lymph # (Auto) 2600 (2626-6466) /uL Cole # (Auto) 700 (0-900) /uL Eos # (Auto) 100 (0-450) /uL Baso # (Auto) 100 (0-100) /uL PT 13.2 H (10.1-12.7) SECONDS INR 1.2 (0.9-1.3) APTT 34 (26.4-36.2) SECONDS Sodium 139 (137-145) mmol/L Potassium 4.1 (3.4-5.1) mmol/L Chloride 107 (98-107) mmol/L Carbon Dioxide 20 L (22-32) mmol/L BUN 12 (9-20) mg/dL Creatinine 0.81 (0.66-1.25) mg/dL Estimated GFR > 60.0 (>60) mL/min BUN/Creatinine Ratio 14.8 (6-22) Glucose 120 H (80-110) mg/dL Calcium 9.5 (8.4-10.2) mg/dL Total Bilirubin 2.1 H (0.2-1.3) mg/dL AST 50 (17-59) IU/L ALT 51 H (<50) IU/L Alkaline Phosphatase 75 (38-126) U/L Total Protein 8.0 (6.3-8.2) g/dL Albumin 4.6 (3.5-5.0) g/dL Globulin 3.4 (1.7-4.1) g/dL Albumin/Globulin Ratio 1.4 (1.0-2.8) Point of Care Testing Stool Occult Blood Positive Urine Dip Bedside Urine Glucose Negative Bedside Urine Bilirubin - Negative Bedside Urine Ketone - Negative Urine Specific [place] 1.015 Bedside Urine Occult Blood - Negative Bedside Urine pH 6 Bedside Urine Protein - Negative Bedside Urine Urobilinogen - Negative Bedside Urine Nitrite - Negative Bedside Urine Leukocytes - Negative Esterase Imaging Data CT scan - abdomen/pelvis: Radiologist's Impression: [address] [id number] Scan ReportSigned Patient: Keon Montesinos R#: [id number]: [id number]:[id number]/Sex: 65 / MDate of Service: 11/23/20Loc: EDAccession Number: [id number] Procedure: CT abdomen pelvis w con Ordering Provider: Jeffrey Leavitt MD PROCEDURE: CT ABDOMEN PELVIS W CON INDICATIONS: IV contrast only/left-sided abdominal pain/GI bleed TECHNIQUE: After the administration of intravenous contrast, 5 mm thick sections acquired from the diaphragm to the symphysis. 5 mm coronal and sagittal reformats were acquired. For radiation dose reduction, the following was used: automated exposure control, adjustment of mA and/or kV according to patient size. COMPARISON: [facility], , CT ABDOMEN WITH CONTRAST, 10/20/2004, 8:09. [facility], [place], ABDOMEN COMPLETE, 09/14/2011, 8:40. FINDINGS: Image quality: Excellent. ABDOMEN: Lung bases: Lung bases are clear. Heart size is normal. Solid organs: Liver is normal in size and enhancement. Diffuse fatty liver infiltration is noted. Gallbladder wall is not thickened. Biliary system is non dilated. Pancreas enhances normally. Spleen is normal in size and enhancement. No adrenal nodules. Kidneys demonstrate normal size and enhancement, without hydronephrosis. Peritoneum and bowel: There is moderate thickening seen involving the descending colon and the sigmoid colon, with diverticular formation within this region. Mild surrounding inflammatory changes are seen. No findings of free air are seen. No loculated abscess collections can be seen. No significant free fluid is seen. A normal appendix is seen. No dilated loops of small bowel are seen. Nodes and vessels: No retroperitoneal or mesenteric adenopathy by size criteria. Aorta and inferior vena cava are normal in size. Miscellaneous: No ventral hernias. PELVIS: Genitourinary: Bladder wall thickness is normal. Miscellaneous: No enlarged inguinal or pelvic lymph nodes are seen. There is a fat-containing right inguinal hernia seen. Bones: No suspicious bony lesions. No vertebral body compression fractures. Mild levoconvex scoliotic curvature is noted. Degenerative changes are seen throughout, which are worst at the L5-S1 level. IMPRESSION: Colonic wall thickening is seen involving the descending colon and the sigmoid colon. Please correlate with potential infectious and inflammatory causes of colitis. (The extent of colonic involvement is more prominent than would be expected in patient with diverticulitis.) No findings of perforation or abscess can be seen. Incidental note is made of: Fatty liver infiltration Levoconvex scoliotic curvature Normal appendix Focal L5-S1 degenerative change Fat containing right inguinal hernia Dictated by: Joni Perez M.D. on 11/23/2020 at 10:36 Approved by: Joni Perez M.D. on 11/23/2020 at 10:40 ECG Data Attestation: I personally reviewed and interpreted this ECG as follows: Interpretation: Normal sinus rhythm rate [address] elevation or depression MDM Narrative Medical decision making narrative: Appropriate for discharge home. Exam reassuring. Not hypotensive not tachycardic. Not dyspneic. Stable labs. Patient does not want to be admitted. Prefers prophylactic antibiotic. Up and walking to the bathroom. For stool specimen. No dizziness. Discharge Plan Departure Patient Disposition: Home Clinical Impression: Colitis with rectal bleeding Instructions: Gastrointestinal Bleeding, DI for Colitis Activity Restrictions/Additional Instructions: Return immediately if worse if any questions or concerns. Return if increased rectal bleeding or any dizziness or trouble breathing or feel like passing out. Call provided general surgery office to schedule endoscopy of the stomach and colon. Prescription has been sent to your [facility] in [facility] Prescriptions: New ciprofloxacin HCl 500 mg tablet 500 mg PO BID Qty: 10 RF: 0 No Action btqsxwle-ndpy-ZS-calcium-mins [Thera M Plus (ferrous fumarat)] 1 EACH tablet PO Q DAY Qty: 0 RF: 0 omeprazole 20 mg tablet,delayed release (DR/EC) 20 mg PO DAILY Qty: 90 RF: 1 tizanidine 4 mg tablet 4 mg PO BID PRN (Reason: muscle spasticity) Qty: 60 RF: 0 aspirin 81 mg tablet,delayed release (DR/EC) 81 mg PO DAILY RF: 0 Referrals: Mo Navarro MD [Primary Care Provider] - Trenton Valerio MD [Physician] -
[2020-11-23 11:30] VITALS: PULSE 66; O2SAT 95
[2020-11-23] MEDS: SODIUM CHLORIDE 0.9% 500 ML 1000 ML IV (11:41)
[2020-11-23 11:46] LABS: INR 1.2 (0.9-1.3); Prothrombin Time 13.2 SECONDS (10.1-12.7)
[2020-11-23 11:49] LABS: PTT Partial Thromboplastin Tim 34 SECONDS (26.4-36.2)
[2020-11-23] MEDS: CIPROFLOXACIN 250 MG TABLET 500 MG PO (12:17)
[2020-11-23 12:18] VITALS: BP 138/70; PULSE 74; RESP 18; O2SAT 98
== END 2020-11-23 12:20 | disposition home or self-care (01) ==
PROVIDERS: Emergency Provider Emergency Medicine; PCP Student in an Organized Health Care Education/Training Program
DX: K52.9 Noninfective gastroenteritis and colitis, unspecified (principal); K62.5 Hemorrhage of anus and rectum
CPT/HCPCS: 36415; 74177; 80053; 81003; 82272; 85025; 85610; 85730; 93005; 96360; 99284; Q9967

== ENCOUNTER 2020-11-29 09:59 | Emergency (ER) | payer MEDICARE, OTHER, SELFPAY ==
[2020-11-29] VITALS (10 sets, daily range): BP systolic 174–200; BP diastolic 86–96; PULSE 53–67; RESP 16; TEMP 36.8; O2SAT 96–98
--- NOTE | 2020-11-29 10:44 | ED_ITS ---
HPI - General Adult General Chief complaint: Abdominal Pain Stated complaint: blood in stool/stomach cramping Time Seen by Provider: 11/29/20 10:11 Source: patient Mode of arrival: Family Vehicle Limitations: no limitations History of Present Illness HPI narrative: Patient is a 65-year-old male who was seen here in the emergency department approximately 1 week ago after experiencing bloody diarrhea. He had labs performed and a CT scan which showed a enteritis. He was started on antibiotics and discharged home. He has started taking the antibiotics as directed and stated that his symptoms all but resolved. Yesterday morning was his last dose of antibiotics and then last evening his symptoms seem to return. He is having diarrhea. Also having abdominal discomfort. No fevers. Related Data Home Medications Medication Instructions Recorded Confirmed lllpgdkw-cjyh-GN-calcium-mins PO Q DAY #0 09/10/17 10/16/20 [Thera M Plus (ferrous fumarat)] aspirin 81 mg tablet,delayed 81 mg PO DAILY 07/01/18 10/16/20 release Previous Rx's Medication Instructions Recorded omeprazole 20 mg tablet,delayed 20 mg PO DAILY #90 tab 02/12/20 release tizanidine 4 mg tablet 4 mg PO BID PRN #60 tab 10/16/20 ciprofloxacin HCl 500 mg PO BID #10 tab 11/23/20 ciprofloxacin HCl 500 mg PO BID 5 Days #10 tab 11/29/20 Allergies Allergy/AdvReac Type Severity Reaction Status Date / Time No Known Drug Allergies Allergy Verified 11/29/20 10:38 Review of Systems Constitutional Constitutional: Denies fever(s) Cardiovascular Cardiovascular: Denies chest pain and Denies dyspnea Respiratory Respiratory: Denies dyspnea Gastrointestinal Gastrointestinal: Reports abdominal pain, Reports diarrhea and Denies vomiting Genitourinary Genitourinary: Denies dysuria Genitourinary: Denies dysuria Musculoskeletal Musculoskeletal: Reports system reviewed and no additional complaints, except as documented Integumentary/Breasts Skin/Breast: Reports system reviewed and no additional complaints, except as documented Psychiatric Psychiatric: Reports system reviewed and no additional complaints, except as documented Hematologic/Lymphatic Hematologic/Lymphatic: Reports system reviewed and no additional complaints, except as documented Allergic/Immunologic Allergic/Immunologic: Reports system reviewed and no additional complaints, except as documented Patient History Medical History Chronic back pain (~1979) Diverticular disease (~2009) Hearing loss Iron deficiency anemia Lumbar disc disease (~1979) Shoulder pain (~1979) Sleep apnea (~2004) Tinnitus Vitamin D insufficiency Surgical History Anesthesia History of knee surgery (~2012) Family History Father Stroke Diabetes mellitus Mother Age: 89 Breast cancer Social History Smoking Status: Never smoker Smoking Status: Never smoker alcohol intake frequency: 0-2 drinks per day Alcohol type: hard liquor Substance Use Type: does not use Exam Initial Vital Signs Initial Vital Signs: Vital Signs Pulse Rate 58 L 11/29/20 10:24 Pulse Oximetry 98 11/29/20 10:24 Const General: cooperative and comfortable Limitations: mental status not altered HENMT Head: normal to inspection and normocephalic Resp Effort & Inspection: normal respiratory effort Auscultation: clear to auscultation bilaterally Cardio Rate: regular rate Rhythm: regular rhythm GI Inspection: non-distended Palpation: No firm and tender (Left side abdomen) Skin Lesions: no lesions Rashes: no rashes Neuro General: patient alert and patient awake Cognition: normal cognition Speech: speech normal Extrem General: normal to inspection and capillary refill normal Psych Appearance: grossly normal and well kempt Course Orders Ordered: ED Orders 11/29/20 10:46 CT abdomen pelvis w con Stat 11/29/20 11:10 GI Panel (Film Array) Stat 11/29/20 11:12 Complete Blood Count AUTO DIFF Stat Comprehensive Metabolic Panel Stat Lipase Stat Discontinued Medications Sodium Chloride (Normal Saline 0.9%) 1,000 mls @ 1,000 mls/hr IV BOLUS ONE Stop: 11/29/20 11:43 Last Infusion: 11/29/20 12:22 Dose: 0 mls/hr Documented by: Admin: 11/29/20 11:19 Dose: 1,000 mls/hr Documented by: SULLY Vital Signs Vital signs: Vital Signs - 8 hr 11/29/20 10:24 11/29/20 10:27 11/29/20 10:30 Temperature 98.2 F Pulse Rate 58 L 58 L 60 Respiratory Rate 16 Blood Pressure 185/94 H Pulse Oximetry 98 98 96 11/29/20 10:31 11/29/20 11:58 11/29/20 11:59 Temperature Pulse Rate 59 L 67 Respiratory Rate Blood Pressure 174/86 H 199/88 H Pulse Oximetry 96 97 97 11/29/20 12:00 11/29/20 12:33 11/29/20 12:51 Temperature Pulse Rate 57 L 63 64 Respiratory Rate 16 Blood Pressure 175/91 H 200/95 H 182/90 H Pulse Oximetry 98 96 97 11/29/20 13:00 Temperature Pulse Rate 53 L Respiratory Rate Blood Pressure 175/96 H Pulse Oximetry 97 Medical Decision Making Lab Data Lab results reviewed: Yes I reviewed the patient's lab results. Result diagrams: 11/29/20 11:12 11/29/20 11:12 Labs: Lab Results 11/29/20 11/29/20 11/29/20 Range/Units 11:10 11:12 11:12 WBC 9.8 (4.5-11.0) X10^3/uL RBC 5.02 (4.5-5.9) X10^6/uL Hgb 16.2 (13.5-17.5) g/dL Hct 48.1 (41-53) % MCV 95.7 (80-100) fL MCH 32.2 (26-34) PG MCHC 33.6 (30-36) % RDW 12.9 (11.6-14.8) % Plt Count 213 (150-400) X10^3/uL Neut % (Auto) 72.8 (50-75) % Lymph % (Auto) 18.6 L (25-40) % [place] % (Auto) 7.3 (3-14) % Eos % (Auto) 0.9 L (2-4) % Baso % (Auto) 0.4 (0-2) % Neut # (Auto) 7200 H (3630-8348) /uL Lymph # (Auto) 1800 (3219-9392) /uL [place] # (Auto) 700 (0-900) /uL Eos # (Auto) 100 (0-450) /uL Baso # (Auto) 0 (0-100) /uL Sodium 139 (137-145) mmol/L Potassium 4.1 (3.4-5.1) mmol/L Chloride 105 (98-107) mmol/L Carbon Dioxide 24 (22-32) mmol/L BUN 15 (9-20) mg/dL Creatinine 0.82 (0.66-1.25) mg/dL Estimated GFR > 60.0 (>60) mL/min BUN/Creatinine Ratio 18.3 (6-22) Glucose 124 H (80-110) mg/dL Calcium 9.5 (8.4-10.2) mg/dL Total Bilirubin 1.0 (0.2-1.3) mg/dL AST 54 (17-59) IU/L ALT 61 H (<50) IU/L Alkaline Phosphatase 86 (38-126) U/L Total Protein 8.0 (6.3-8.2) g/dL Albumin 4.5 (3.5-5.0) g/dL Globulin 3.5 (1.7-4.1) g/dL Albumin/Globulin Ratio 1.3 (1.0-2.8) Lipase 63 (23-300) U/L Stl C. cayetanensis PCR Not detected (Not Detect) Stool Rotavirus (PCR) Not detected (Not Detect) Stool Adenovirus (PCR) Not detected (Not Detect) Stool Astrovirus (PCR) Not detected (Not Detect) Stool Cryptosporidium PCR Not detected (Not Detect) Stl E.coli Shiga Tox PCR Not detected (Not Detect) St Sh/Enteroin Ecoli PCR Not detected (Not Detect) Stool E coli O157 PCR Not Reportable Stl Enterotoxigenic E PCR Not detected (Not Detect) Stool EPEC (PCR) Not detected (Not Detect) Stl E. histolytica PCR Not detected (Not Detect) Stool Giardia Lamblia PCR Not detected (Not Detect) Stool Sapovirus (PCR) Not detected (Not Detect) Stl P. shigelloides PCR Not detected (Not Detect) St Y.enterocolitica PCR Not detected (Not Detect) Stool Vibrio (PCR) Not detected (Not Detect) Stl Vibrio cholerae PCR Not detected (Not Detect) Stl Enteroaggr Ecoli PCR Not detected (Not Detect) Stl Norovirus GI/GII PCR Not detected (Not Detect) Campylobacter (PCR) Not detected (Not Detect) C. difficile Tox (PCR) Not detected (Not Detect) Salmonella (PCR) Not detected (Not Detect) Imaging Data CT scan - abdomen/pelvis: Radiologist's Impression: [address] [id number] Scan ReportSigned Patient: Keon Montesinos RMR#: [id number]: 1955cct:[id number]/Sex: 65 / MDate of Service: 11/29/20Loc: EDAccession Number: [id number] Procedure: CT abdomen pelvis w con Ordering Provider: Flip Sr D.O. PROCEDURE: CT ABDOMEN PELVIS W CON INDICATIONS: Rectal bleeding and left-sided abdominal discomfort TECHNIQUE: After the administration of intravenous contrast, 5 mm thick sections acquired from the diaphragm to the symphysis. 5 mm coronal and sagittal reformats were acquired. For radiation dose reduction, the following was used: automated exposure control, adjustment of mA and/or kV according to patient size. COMPARISON: [facility], CT, CT ABDOMEN PELVIS W CON, 11/23/2020, 11:10. FINDINGS: Image quality: Excellent. ABDOMEN: Lung bases: Lung bases are clear. Heart size is normal. Solid organs: Liver is normal in size and enhancement. Diffuse hepatic steatosis. Gallbladder is unremarkable. Biliary system is non dilated. Pancreas enhances normally. Spleen is normal in size and enhancement. No adrenal nodules. Kidneys demonstrate normal size and enhancement, without hydronephrosis. Bilateral ureters are normal in course and caliber. Peritoneum and bowel: Redemonstration of circumferential colonic wall thickening involving the descending colon and proximal sigmoid colon which appear much less pronounced compared to prior study dated November 23, 2020. There is still more prominent circumferential wall thickening of the distal segment of the involved sigmoid colon relative to the descending colon. Scattered colonic diverticula are again noted in the segment. Again, they do not appear to be the epicenter for inflammatory changes. No evidence for perforation or abscess formation. No free fluid or air. Normal appendix. Nodes and vessels: No retroperitoneal or mesenteric adenopathy by size criteria. Aorta and inferior vena cava are normal in size. Scattered atherosclerotic calcifications of the abdominal aorta and iliac vessels without aneurysmal dilatation. Miscellaneous: No ventral hernias. PELVIS: Genitourinary: Urinary bladder wall thickness appears normal for degree of distension. Miscellaneous: Small right fat containing inguinal hernia. No pelvic adenopathy. Bones: No suspicious bony lesions. No acute vertebral body compression fractures. IMPRESSION: 1. Persistent but significantly decreased circumferential colonic wall thick ening of the descending colon and sigmoid colon. There is a short segment of relative increased thickening of the distal aspect of the involved sigmoid colon. Recommend direct visualization with colonoscopy after resolution of acute symptoms to exclude underlying neoplastic process. No evidence for abscess formation or perforation. 2. Hepatic steatosis. 3. Normal appendix. 4. Colonic diverticulosis. Dictated by: Erasmo Hay M.D. on 11/29/2020 at 12:49 Approved by: Erasmo Hay M.D. on 11/29/2020 at 13:02 [facility] Narrative Medical decision making narrative: Had a long discussion with the patient today regarding options to include lab work and repeating CT scan versus just restarting antibiotics verses waiting to see if his symptoms improve. After this discussion the decision was made to or perform lab work and CT scan. His GI panel was negative however he has been on antibiotics for the past week. His CT scan shows improvement of his symptoms. There is no surgical issue today. He is afebrile. Plan will be is to continue with 1 more course of the Cipro as this does seem to improve his symptoms. He will increase his fluid intake and contact his primary doctor for follow-up to discuss potential colonoscopy. He is given return precautions. Expressed understanding and agreement Discharge Plan Departure Patient Disposition: Home Clinical Impression: Colitis Instructions: DI for Colitis Activity Restrictions/Additional Instructions: Take the antibiotics as directed. I do recommend that you talk with your primary doctor about a follow-up and to discuss the indications for a colonoscopy. Return to the emergency department for any new or worsening symptoms Prescriptions: New ciprofloxacin HCl 500 mg tablet 500 mg PO BID 5 Days Qty: 10 RF: 0 No Action siczjzds-moat-XY-calcium-mins [Thera M Plus (ferrous fumarat)] 1 EACH tablet PO Q DAY Qty: 0 RF: 0 omeprazole 20 mg tablet,delayed release (DR/EC) 20 mg PO DAILY Qty: 90 RF: 1 tizanidine 4 mg tablet 4 mg PO BID PRN (Reason: muscle spasticity) Qty: 60 RF: 0 aspirin 81 mg tablet,delayed release (DR/EC) 81 mg PO DAILY RF: 0 ciprofloxacin HCl 500 mg tablet 500 mg PO BID Qty: 10 RF: 0 Referrals: Mo Navarro MD [Primary Care Provider] -
[2020-11-29] MEDS: SODIUM CHLORIDE 0.9% 1,000 ML 1000 ML IV (11:19)
[2020-11-29 11:20] LABS: Add Manual Diff / Slide Review NO; Basophils Absolute Auto 0 /uL (0-100); Basophils Percent Auto 0.4 % (0-2); Eosinophils Absolute Auto 100 /uL (0-450); Eosinophils Percent Auto 0.9 % (2-4); Hematocrit 48.1 % (41-53); Hemoglobin 16.2 g/dL (13.5-17.5); Lymphocytes Absolute Auto 1800 /uL (1100-4500); Lymphocytes Percent Auto 18.6 % (25-40); Mean Corpuscular HGB Conc 33.6 % (30-36); Mean Corpuscular Hemoglobin 32.2 PG (26-34); Mean Corpuscular Volume 95.7 fL (80-100); Monocytes Absolute Auto 700 /uL (0-900); Monocytes Percent Auto 7.3 % (3-14); Neutrophils Absolute Auto 7200 /uL (1500-7000); Neutrophils Percent Auto 72.8 % (50-75); Platelet Count 213 X10^3/uL (150-400); Red Blood Cell Count 5.02 X10^6/uL (4.5-5.9); Red Cell Distribution Width 12.9 % (11.6-14.8); White Blood Cell Count 9.8 X10^3/uL (4.5-11.0)
[2020-11-29 11:29] LABS: Alanine Aminotransferase 61 IU/L (<50); Albumin 4.5 g/dL (3.5-5.0); Albumin Globulin Ratio 1.3 (1.0-2.8); Alkaline Phosphatase 86 U/L (38-126); Aspartate Aminotransferase 54 IU/L (17-59); BUN Creatinine Ratio 18.3 (6-22); Blood Urea Nitrogen 15 mg/dL (9-20); Calcium 9.5 mg/dL (8.4-10.2); Carbon Dioxide 24 mmol/L (22-32); Chloride 105 mmol/L (98-107); Estimated Glomerular Filt Rate > 60.0 mL/min (>60); Globulin 3.5 g/dL (1.7-4.1); Glucose 124 mg/dL (80-110); HEMOLYSIS < 15 (0-50); Lipase 63 U/L (23-300); Potassium 4.1 mmol/L (3.4-5.1); Sodium 139 mmol/L (137-145)
[2020-11-29 13:30] LABS: Adenovirus F 40/41 Not Detected (Not Detect); Astrovirus Not Detected (Not Detect); Campylobacter Not Detected (Not Detect); Clostridium difficile toxin AB Not Detected (Not Detect); Cryptosporidium Not Detected (Not Detect); Cyclospora cayetanensis Not Detected (Not Detect); Entamoeba histolytica Not Detected (Not Detect); Enteroaggregative E.coli Not Detected (Not Detect); Enteropathogenic E.coli Not Detected (Not Detect); Enterotoxigenic E.coli It/st Not Detected (Not Detect); Giardia lamblia Not Detected (Not Detect); Norovirus GI/GII Not Detected (Not Detect); Plesiomonsa shigelloides Not Detected (Not Detect); Rotavirus A Not Detected (Not Detect); Salmonella Not Detected (Not Detect); Sapovirus Not Detected (Not Detect); Shiga-like toxin-prod E.coli Not Detected (Not Detect); Shigella/Enteroinvasive E.coli Not Detected (Not Detect); Vibrio Not Detected (Not Detect); Vibrio cholerae Not Detected (Not Detect); Yersinia enterocolitica Not Detected (Not Detect)
== END 2020-11-29 14:14 | disposition home or self-care (01) ==
PROVIDERS: Emergency Provider Emergency Medicine; PCP Student in an Organized Health Care Education/Training Program
DX: K52.9 Noninfective gastroenteritis and colitis, unspecified (principal); R10.9 Unspecified abdominal pain
CPT/HCPCS: 36415; 74177; 80053; 83690; 85025; 87507; 96360; 99284; Q9967

== ENCOUNTER 2021-02-19 13:13 | Emergency (ER) | payer MEDICARE, OTHER, SELFPAY ==
[2021-02-19 13:47] VITALS: BP 191/92; PULSE 57; RESP 16; TEMP 36.6; O2SAT 98; BMI 31.5
[2021-02-19] MEDS: PROPARACAINE 0.5% OPHTH SOL 1 DROPS EYE-RIGHT (16:13)
[2021-02-19] MEDS: FLUORESCEIN 1 MG STRIP EYE-RIGHT (16:13)
--- NOTE | 2021-02-19 16:21 | ED.EYEPROB ---
HPI - Eye Problem <Tico Jones PA-C - Last Filed: 02/19/21 19:41> General Chief complaint: Eye Problems Stated complaint: something in eye, [facility] can't help/tried flushing Time Seen by Provider: 02/19/21 15:40 Source: patient Mode of arrival: Wheelchair Limitations: no limitations History of Present Illness HPI Narrative: Keon presents today with chief complaint left eye pain, watery discharge, and light sensitivity that started while he was driving [facility] in his friend's truck. Reports that the windows were closed when the discomfort started. Thinks that he got something in his eye. He has not had any significant difficulty seeing. He denies any significant headache, fever, facial swelling, trauma or any other acute concerns or complaints. He irrigated his eye out and reports that that helped but only for a very short period of time. Related Data Home Medications Medication Instructions Recorded Confirmed multivitamin-iron 9 mg-folic acid PO Q DAY #0 09/10/17 10/16/20 400 mcg-calcium and minerals tablet (Thera M Plus (ferrous fumarate)) aspirin 81 mg tablet,delayed 81 mg PO DAILY 07/01/18 10/16/20 release Previous Rx's Medication Instructions Recorded omeprazole 20 mg tablet,delayed 20 mg PO DAILY #90 tab 02/12/20 release tizanidine 4 mg tablet 4 mg PO BID PRN #60 tab 10/16/20 ciprofloxacin HCl 500 mg tablet 500 mg PO BID #10 tab 11/23/20 erythromycin 5 mg/gram (0.5 %) eye 1 applic EYE-LEFT QID 5 Days #1 g 02/19/21 ointment Allergies Allergy/AdvReac Type Severity Reaction Status Date / Time No Known Drug Allergies Allergy Verified 02/19/21 13:51 Review of Systems <Tico Jones PA-C - Last Filed: 02/19/21 19:41> Review of Systems Narrative: As per HPI Patient History <Tico Jones PA-C - Last Filed: 02/19/21 19:41> Medical History Chronic back pain (~1979) Diverticular disease (~2009) Hearing loss Iron deficiency anemia Lumbar disc disease (~1979) Shoulder pain (~1979) Sleep apnea (~2004) Tinnitus Vitamin D insufficiency Surgical History Anesthesia History of knee surgery (~2012) Family History Father Stroke Diabetes mellitus Mother Age: 89 Breast cancer Social History Smoking Status: Never smoker Smoking Status: Never smoker alcohol intake frequency: 0-2 drinks per day Alcohol type: hard liquor Substance Use Type: does not use Exam <Tico Jones PA-C - Last Filed: 02/19/21 19:41> Narrative Exam Narrative: Exam Narrative: Const General: cooperative, healthy appearing, comfortable, no acute distress, well developed and well groomed Nutritional Appearance: average body habitus Orientation: alert and oriented x3 HENMT Head: normal to inspection and atraumatic Ears: hearing grossly normal bilaterally Nose: external nose normal and nares normal Face and sinus: normal facial exam Eyes: Right eye grossly normal in appearance. Left eye has conjunctival injection and watery discharge. Small corneal abrasion noted at 1 oclock position. No foreign body visualized. Upper and lower eyelids everted. Neck Neck: normal visual inspection and supple Resp Effort & Inspection: normal respiratory effort, able to speak in complete sentences, no audible wheezes, not labored, no nasal flaring and no respiratory distress Neuro General: alert, oriented x3, gait normal, tone normal and moves all extremities Cognition: normal cognition Speech: speech normal Gait: normal gait Psych Appearance: grossly normal and well kempt Mental Status: mental status grossly normal Speech and Movement: speech and movement normal Mood: congruent mood Affect: normal affect Initial Vital Signs Initial Vital Signs: Vital Signs Temperature 98 F 02/19/21 13:47 Pulse Rate 57 L 02/19/21 13:47 Respiratory Rate 16 02/19/21 13:47 Blood Pressure 191/92 H 02/19/21 13:47 Pulse Oximetry 98 02/19/21 13:47 <Rosita Avery MD - Last Filed: 02/20/21 10:52> Initial Vital Signs Initial Vital Signs: Vital Signs Temperature 98 F 02/19/21 13:47 Pulse Rate 57 L 02/19/21 13:47 Respiratory Rate 16 02/19/21 13:47 Blood Pressure 191/92 H 02/19/21 13:47 Pulse Oximetry 98 02/19/21 13:47 Course <Tico Jones PA-C - Last Filed: 02/19/21 19:41> Orders Ordered: Discontinued Medications Fluorescein Sodium (Fluorescein 1 Mg Strip) 1 mg EYE-RIGHT NOW ONE Stop: 02/19/21 15:45 Last Admin: 02/19/21 16:13 Dose: 1 mg Documented by: LEONARDA Proparacaine HCl (Proparacaine 0.5% Ophth Renita) 1 drops EYE-RIGHT NOW ONE Stop: 02/19/21 15:45 Last Admin: 02/19/21 16:13 Dose: 1 drop Documented by: LEONARDA Vital Signs Vital signs: Vital Signs - 8 hr 02/19/21 13:47 02/19/21 16:31 Temperature 98 F Pulse Rate 57 L 72 Respiratory Rate 16 18 Blood Pressure 191/92 H 170/88 H Pulse Oximetry 98 96 <Rosita Avery MD - Last Filed: 02/20/21 10:52> Orders Ordered: Discontinued Medications Fluorescein Sodium (Fluorescein 1 Mg Strip) 1 mg EYE-RIGHT NOW ONE Stop: 02/19/21 15:45 Last Admin: 02/19/21 16:13 Dose: 1 mg Documented by: LEONARDA Proparacaine HCl (Proparacaine 0.5% Ophth Renita) 1 drops EYE-RIGHT NOW ONE Stop: 02/19/21 15:45 Last Admin: 02/19/21 16:13 Dose: 1 drop Documented by: LEONARDA Vital Signs Vital signs: Vital Signs - 8 hr 02/19/21 13:47 02/19/21 16:31 Temperature 98 F Pulse Rate 57 L 72 Respiratory Rate 16 18 Blood Pressure 191/92 H 170/88 H Pulse Oximetry 98 96 MDM - Eye Problem <Tico Jones PA-C - Last Filed: 02/19/21 19:41> MDM Narrative Medical decision making narrative: Differential diagnosis includes acute angle closure glaucoma, conjunctivitis, retained foreign body. No visualized foreign body noted. Pupils are equal and responsive. He has not had any significant vision changes. Small abrasion noted. We will treat with topical antibiotics and have him follow up with PCP or return here if symptoms fail to improve as expected. Return precautions discussed. Patient verbalizes understanding and agrees to plan and has no further concerns at this time. Thank you A [id number] system was used with the dictation of this note. Please disregard any spelling or grammatical errors. Discharge Plan Departure Patient Disposition: Home Clinical Impression: Corneal abrasion Qualifiers: Encounter type: initial encounter Laterality: left Qualified Code(s): S05.02XA - Injury of conjunctiva and corneal abrasion without foreign body, left eye, initial encounter Prescriptions: New erythromycin 5 mg/gram (0.5 %) ointment 1 applic EYE-LEFT QID 5 Days Qty: 1 RF: 0 No Action xcjydqyd-zsdv-MU-calcium-mins [Thera M Plus (ferrous fumarat)] 1 EACH tablet PO Q DAY Qty: 0 RF: 0 omeprazole 20 mg tablet,delayed release (DR/EC) 20 mg PO DAILY Qty: 90 RF: 1 tizanidine 4 mg tablet 4 mg PO BID PRN (Reason: muscle spasticity) Qty: 60 RF: 0 aspirin 81 mg tablet,delayed release (DR/EC) 81 mg PO DAILY RF: 0 ciprofloxacin HCl 500 mg tablet 500 mg PO BID Qty: 10 RF: 0 Referrals: Mo Navarro MD [Primary Care Provider] - <Rosita Avery MD - Last Filed: 02/20/21 10:52> Cosign ED Attending Cosignature Attestation: I was immediately available in the department for consultation throughout this patient's visit. I agree with documentation as above. Rostia Avery MD
[2021-02-19 16:31] VITALS: BP 170/88; PULSE 72; RESP 18; O2SAT 96
== END 2021-02-19 16:32 | disposition home or self-care (01) ==
PROVIDERS: Emergency Provider Physician Assistant; PCP Student in an Organized Health Care Education/Training Program
DX: S05.02XA Injury of conjunctiva and corneal abrasion without foreign body, left eye, initial encounter (principal)
CPT/HCPCS: 99282

== ENCOUNTER 2022-12-09 18:45 | Inpatient (IN) | payer MEDICARE, OTHER, SELFPAY ==
[2022-12-09] VITALS (10 sets, daily range): BP systolic 102–121; BP diastolic 71–76; PULSE 89–107; RESP 15–23; TEMP 36.9–37.1; O2SAT 93–97; BMI 29.4
[2022-12-09 19:16] LABS: Add Manual Diff / Slide Review NO; Basophils Absolute Auto 100 /uL (0-100); Basophils Percent Auto 0.6 % (0-2); Eosinophils Absolute Auto 0 /uL (0-450); Eosinophils Percent Auto 0.4 % (2-4); Hematocrit 38.5 % (41-53); Hemoglobin 13.2 g/dL (13.5-17.5); Lymphocytes Absolute Auto 2200 /uL (1100-4500); Lymphocytes Percent Auto 18.7 % (25-40); Mean Corpuscular HGB Conc 34.4 % (30-36); Monocytes Absolute Auto 500 /uL (0-900); Monocytes Percent Auto 4.2 % (3-14); Neutrophils Absolute Auto 9100 /uL (1500-7000); Neutrophils Percent Auto 76.1 % (50-75); Platelet Count 250 X10^3/uL (150-400); Red Blood Cell Count 4.01 X10^6/uL (4.5-5.9); Red Cell Distribution Width 12.6 % (11.6-14.8); White Blood Cell Count 11.9 X10^3/uL (4.5-11.0)
[2022-12-09 19:22] LABS: INR 1.2 (0.9-1.3); Prothrombin Time 14.3 SECONDS (10.1-12.7)
[2022-12-09 19:24] LABS: PTT Partial Thromboplastin Tim 27 SECONDS (26-36)
[2022-12-09] MEDS: PANTOPRAZOLE 40 MG VIAL 80 MG IV (19:25)
[2022-12-09 19:26] LABS: Alanine Aminotransferase 26 IU/L (<50); Albumin 4.4 g/dL (3.5-5.0); Albumin Globulin Ratio 1.5 (1.0-2.8); Alkaline Phosphatase 66 U/L (38-126); Aspartate Aminotransferase 38 IU/L (17-59); BUN Creatinine Ratio 56.1 (6-22); Bilirubin Total 1.3 mg/dL (0.2-1.3); Blood Urea Nitrogen 46 mg/dL (9-20); Calcium 9.2 mg/dL (8.4-10.2); Carbon Dioxide 24 mmol/L (22-32); Chloride 104 mmol/L (98-107); Estimated Glomerular Filt Rate > 60 mL/min (>60); Glucose 141 mg/dL (80-110); HEMOLYSIS 34 (0-50); Potassium 3.9 mmol/L (3.4-5.1); Sodium 139 mmol/L (137-145); Total Protein 7.4 g/dL (6.3-8.2)
--- NOTE | 2022-12-09 19:34 | ED.GIBLEED ---
HPI - GI Bleed General Chief complaint: GI Bleed Stated complaint: Vomiting blood/black stool/hist. of ulcers Time Seen by Provider: 12/09/22 19:13 Source: patient Mode of arrival: Ambulatory History of Present Illness HPI Narrative: Patient is a 67-year-old male. Is otherwise healthy. Has had multiple GI bleeds in the past. He states he has been close to receiving a blood transfusion in the past but has never actually received a transfusion. He does not take anti-inflammatories. Not on anticoagulation. Occasionally drinks alcohol. His last GI bleed was approximately 3 years ago. That was the last time that he had any sort of upper endoscopy or colonoscopies. He is not on a proton pump inhibitor. All of his prior GI bleeds have been caused by gastric ulcers. He states that starting this morning he has had multiple episodes of black dark colored stools and also coffee-ground emesis. He states he is having some shortness of breath on exertion. No chest pain. Is having some mild abdominal tenderness. No blood in his urine. Does not bruise easily. No chest pain. Related Data Home Medications Medication Instructions Recorded Confirmed uqkcqcbi-ell-zdser acid 300 1 tab PO DAILY 05/26/22 12/09/22 mcg-lycopene 600 mcg-lutein 300 mcg tablet (Centrum Silver Men) psyllium husk 0.52 gram capsule 0.52 g PO DAILY 05/26/22 12/09/22 (Fiber-Caps (psyllium husk)) vitamin D3 125 mcg (5,000 1 tab PO QWEEK 05/26/22 12/09/22 unit)-folic acid 1 mg tablet glucosamine sulf dipot 1 cap PO 12/09/22 chlr,msm,chond 550 mg-C 30 mg-yamileth 1 mg capsule (Glucosamine Chondroitin) Allergies Allergy/AdvReac Type Severity Reaction Status Date / Time No Known Drug Allergies Allergy Verified 12/09/22 18:54 Review of Systems Review of Systems ROS Unobtainable: All systems reviewed & are unremarkable except as noted in HPI and below Patient History Medical History Chronic back pain (~1979) Diverticular disease (~2009) Hearing loss History of fatty infiltration of liver (11/02/16) Iron deficiency anemia Lumbar disc disease (~1979) Obstructive sleep apnea Osteoarthritis of left knee (01/20/17) Shoulder pain (~1979) Tinnitus Surgical History Anesthesia History of knee surgery (~2012) Family History Father Stroke Diabetes mellitus Mother Age: 91 Breast cancer Social History household members: spouse Smoking Status: Never smoker Smoking Status: Never smoker alcohol intake frequency: holidays/special occasions only Alcohol type: hard liquor Substance Use Type: does not use Exam Initial Vital Signs Initial Vital Signs: Vital Signs Temperature 98.7 F 12/09/22 18:46 Pulse Rate 105 H 12/09/22 18:46 Respiratory Rate 15 12/09/22 18:46 Blood Pressure 105/71 12/09/22 18:46 Pulse Oximetry 97 12/09/22 18:46 Oxygen Delivery Method Room Air 12/09/22 18:46 Const General: cooperative, comfortable and No ill appearing HENNH Head: normal to inspection and normocephalic Resp Effort & Inspection: normal respiratory effort Auscultation: clear to auscultation bilaterally Cardio Rate: regular rate Rhythm: regular rhythm GI Inspection: normal to inspection and non-distended Palpation: soft, No firm, No guarding and tender (Mild diffuse tenderness) Skin General: no rashes or lesions noted Neuro General: patient alert, patient awake, patient oriented x3 and moves all extremities Cognition: normal cognition Extrem General: normal to inspection and capillary refill normal Psych Appearance: grossly normal and well kempt Scores GCS [place] coma scale eye opening: Spontaneous Doug coma scale verbal response: Orientated Doug coma scale motor response: Obey commands [place] coma scale total score: 15 Course Orders Ordered: ED Orders 12/09/22 18:58 EKG-12 Lead Stat 12/09/22 19:00 Complete Blood Count AUTO DIFF Stat Comprehensive Metabolic Panel Stat PTT Partial Thromboplastin Leandro Stat Prothrombin Time INR Stat Type and Screen Stat 12/09/22 20:56 Consult to General Surgery Stat 12/09/22 21:41 Hemoglobin and Hematocrit Stat Acetaminophen (Acetaminophen 325 Mg Tablet) 650 mg PO Q6H PRN PRN Reason: Fever/Mild Pain (1-3) Dextrose/Sodium Chloride (Dextrose 5%-0.9% Ns) 1,000 mls @ 100 mls/hr IV CONT [facility] Last Admin: 12/09/22 22:16 Dose: 100 mls/hr Documented By: [facility] Melatonin (Melatonin 3 Mg Tablet) 6 mg PO BEDTIME [facility] Last Admin: 12/09/22 23:17 Dose: 6 mg Documented By: [facility] Naloxone HCl (Naloxone 0.4 Mg/Ml Vial) 0.2 mg IV Q2MIN PRN PRN Reason: Opiate Reversal Ondansetron HCl (Ondansetron 4 Mg/2 Ml Inj) 4 mg IV Q8HR PRN PRN Reason: Nausea And Vomiting Last Admin: 12/09/22 22:14 Dose: 4 mg Documented By: [facility] Oxycodone HCl (Oxycodone Ir 5 Mg Tablet) 5 mg PO Q3H PRN PRN Reason: Pain, Moderate (4-6) Pantoprazole Sodium (Pantoprazole 40 Mg Vial) 40 mg IV BID [facility] Discontinued Medications Ondansetron HCl (Ondansetron 4 Mg/2 Ml Inj) 4 mg IV NOW PRN PRN Reason: Nausea And Vomiting Pantoprazole Sodium (Pantoprazole 40 Mg Vial) 80 mg IV NOW ONE Stop: 12/09/22 18:55 Last Admin: 12/09/22 19:25 Dose: 80 mg Documented By: AT Vital Signs Vital signs: Vital Signs - 8 hr 12/09/22 18:46 12/09/22 18:55 12/09/22 19:00 Temperature 98.7 F Pulse Rate 105 H 99 H 96 H Respiratory Rate 15 23 16 Blood Pressure 105/71 Pulse Oximetry 97 96 96 Oxygen Delivery Method Room Air 12/09/22 19:04 12/09/22 19:04 12/09/22 19:30 Temperature Pulse Rate 97 H Respiratory Rate 19 Blood Pressure 114/73 117/71 Pulse Oximetry 96 Oxygen Delivery Method Room Air 12/09/22 19:30 12/09/22 20:00 12/09/22 20:00 Temperature Pulse Rate 97 H 89 Respiratory Rate 21 21 Blood Pressure 121/74 Pulse Oximetry 94 93 Oxygen Delivery Method Room Air Room Air 12/09/22 20:30 12/09/22 20:30 12/09/22 21:00 Temperature Pulse Rate 99 H Respiratory Rate 16 Blood Pressure 109/71 111/76 Pulse Oximetry 93 Oxygen Delivery Method Room Air 06/14/23 21:00 Temperature Pulse Rate 92 H Respiratory Rate 19 Blood Pressure Pulse Oximetry 93 Oxygen Delivery Method Room Air MDM - GI Bleed Lab Data Attestation: I reviewed the patient's lab results. 12/09/22 21:41 12/09/22 21:41 Labs: Lab Results 12/09/22 12/09/22 12/09/22 Range/Units 19:00 19:00 19:00 WBC 11.9 H (4.5-11.0) X10^3/uL RBC 4.01 L (4.5-5.9) X10^6/uL Hgb 13.2 L (13.5-17.5) g/dL Hct 38.5 L (41-53) % MCV 96.0 (80-100) fL MCH 33.0 (26-34) PG MCHC 34.4 (30-36) % RDW 12.6 (11.6-14.8) % Plt Count 250 (150-400) X10^3/uL Neut % (Auto) 76.1 H (50-75) % Lymph % (Auto) 18.7 L (25-40) % [place] % (Auto) 4.2 (3-14) % Eos % (Auto) 0.4 L (2-4) % Baso % (Auto) 0.6 (0-2) % Neut # (Auto) 9100 H (2083-4380) /uL Lymph # (Auto) 2200 (4067-8338) /uL [place] # (Auto) 500 (0-900) /uL Eos # (Auto) 0 (0-450) /uL Baso # (Auto) 100 (0-100) /uL PT 14.3 H (10.1-12.7) SECONDS INR 1.2 (0.9-1.3) APTT 27 (26-36) SECONDS Sodium 139 (137-145) mmol/L Potassium 3.9 (3.4-5.1) mmol/L Chloride 104 (98-107) mmol/L Carbon Dioxide 24 (22-32) mmol/L BUN 46 H (9-20) mg/dL Creatinine 0.82 (0.66-1.25) mg/dL Estimated GFR > 60 (>60) mL/min BUN/Creatinine Ratio 56.1 H (6-22) Glucose 141 H (80-110) mg/dL Calcium 9.2 (8.4-10.2) mg/dL Total Bilirubin 1.3 (0.2-1.3) mg/dL AST 38 (17-59) IU/L ALT 26 (<50) IU/L Alkaline Phosphatase 66 (38-126) U/L Total Protein 7.4 (6.3-8.2) g/dL Albumin 4.4 (3.5-5.0) g/dL Globulin 3.0 (1.7-4.1) g/dL Albumin/Globulin Ratio 1.5 (1.0-2.8) Blood Type Antibody Screen 12/09/22 Range/Units 19:00 WBC (4.5-11.0) X10^3/uL RBC (4.5-5.9) X10^6/uL Hgb (13.5-17.5) g/dL Hct (41-53) % MCV (80-100) fL MCH (26-34) PG MCHC (30-36) % RDW (11.6-14.8) % Plt Count (150-400) X10^3/uL Neut % (Auto) (50-75) % Lymph % (Auto) (25-40) % [place] % (Auto) (3-14) % Eos % (Auto) (2-4) % Baso % (Auto) (0-2) % Neut # (Auto) (6838-9276) /uL Lymph # (Auto) (6183-5375) /uL [place] # (Auto) (0-900) /uL Eos # (Auto) (0-450) /uL Baso # (Auto) (0-100) /uL PT (10.1-12.7) SECONDS INR (0.9-1.3) APTT (26-36) SECONDS Sodium (137-145) mmol/L Potassium (3.4-5.1) mmol/L Chloride (98-107) mmol/L Carbon Dioxide (22-32) mmol/L BUN (9-20) mg/dL Creatinine (0.66-1.25) mg/dL Estimated GFR (>60) mL/min BUN/Creatinine Ratio (6-22) Glucose (80-110) mg/dL Calcium (8.4-10.2) mg/dL Total Bilirubin (0.2-1.3) mg/dL AST (17-59) IU/L ALT (<50) IU/L Alkaline Phosphatase (38-126) U/L Total Protein (6.3-8.2) g/dL Albumin (3.5-5.0) g/dL Globulin (1.7-4.1) g/dL Albumin/Globulin Ratio (1.0-2.8) Blood Type O Positive Antibody Screen Negative ECG Data Attestation: I personally reviewed and interpreted this ECG as follows: Interpretation: Sinus rhythm Ventricular rate 94 Normal axis Normal QRS Normal QTC No ST T wave changes MDM Narrative Medical decision making narrative: Patient was tachycardic upon arrival. He is also having some dyspnea on exertion. Was not hypotensive. Is slightly anemic but certainly not at a level that would require blood transfusion. Minimal abdominal tenderness. Patient was given Protonix. Given his history and his presentation today and his heart rate patient would benefit from admission to the hospital for upper endoscopy. I did discuss the case with Dr. Atkinson who is a on-call general surgeon who asked that the patient be admitted to the Medicine Service and she would consult most likely take for an upper endoscopy tomorrow. Then discuss the case with Dr. Byrd hospitalist on-call who will admit for further evaluation and treatment. I did discuss the need for admission with the patient. He expressed understanding and agreement. Discharge Plan Departure Patient Disposition: Admitted as Observation Clinical Impression: Upper gastrointestinal hemorrhage Admit Date/Time: 12/09/22 21:09 Admit Provider: Narciso Byrd
--- NOTE | 2022-12-09 21:43 | PM.HP.1 ---
History of Present Illness History of Present Illness Date Patient Seen: 12/09/22 Time Patient Seen: 21:44 Date of Onset of Symptoms: 12/09/22 Chief complaint: Vomiting blood/black stool/hist. of ulcers Narrative: The patient is a 67 year current melena and coffee-ground emesis. He is had 3 days of some midepigastric irritation. He has a history of GI bleeding with melena 3 or 4 times in the past, each associated with gastric ulcers. He has had new send the scopes and colonoscopies. The patient arrived to the emergency department by car as he lives nearby. He had normal vital signs and was not tachycardic or hypotensive. His initial hemoglobin was 13.2. The patient was discussed with Dr. Atkinson of surgery and will be started on IV Protonix every 12 hours. The patient denies any chest pain and has a very small amount of dyspnea. He denies the use of nonsteroidal anti-inflammatory agents and uses only for pain. He has no other medical problems other than chronic neck and shoulder pain. He takes no prescription medications last GI bleed was approximately 5 years ago. [facility] Medical History Chronic back pain (~1979) Diverticular disease (~2009) Hearing loss History of fatty infiltration of liver (11/02/16) Iron deficiency anemia Lumbar disc disease (~1979) Obstructive sleep apnea Osteoarthritis of left knee (01/20/17) Shoulder pain (~1979) Tinnitus Surgical History Anesthesia History of knee surgery (~2012) Family History Father Stroke Diabetes mellitus Mother Age: 91 Breast cancer Social History Smoking Status: Never smoker Comment: Lives within 4 blocks of this hospital with his . He is a nonsmoker and drinks only occasionally. Meds Home Medications and Allergies Home Medications Medication Instructions Recorded Confirmed Type dmagzokn-vey-grusm acid 300 1 tab PO DAILY 05/26/22 05/26/22 History mcg-lycopene 600 mcg-lutein 300 mcg tablet (Centrum Silver Men) psyllium husk 0.52 gram capsule 0.52 g PO DAILY 05/26/22 05/26/22 History (Fiber-Caps (psyllium husk)) vitamin D3 125 mcg (5,000 1 tab PO QWEEK 05/26/22 05/26/22 History unit)-folic acid 1 mg tablet Allergies Allergy/AdvReac Type Severity Reaction Status Date / Time No Known Drug Allergies Allergy Verified 12/09/22 18:54 Review of Systems Review of Systems Narrative: No fevers, or URI symptoms. No headache. The of bright red blood in his emesis or stools. He denies any abdominal distention. No difficulties with urination. All else reviewed and otherwise negative. Exam Vital Signs (past 8 hours): - 12/09/22 18:46 12/09/22 18:55 12/09/22 19:00 Temperature 98.7 F Pulse Rate 105 H 99 H 96 H Respiratory Rate 15 23 16 Blood Pressure 105/71 Pulse Oximetry 97 96 96 Oxygen Delivery Method Room Air 12/09/22 19:04 12/09/22 19:04 12/09/22 19:30 Temperature Pulse Rate 97 H Respiratory Rate 19 Blood Pressure 114/73 117/71 Pulse Oximetry 96 Oxygen Delivery Method Room Air 12/09/22 19:30 12/09/22 20:00 12/09/22 20:00 Temperature Pulse Rate 97 H 89 Respiratory Rate 21 21 Blood Pressure 121/74 Pulse Oximetry 94 93 Oxygen Delivery Method Room Air Room Air 12/09/22 20:30 12/09/22 20:30 12/09/22 21:00 Temperature Pulse Rate 99 H Respiratory Rate 16 Blood Pressure 109/71 111/76 Pulse Oximetry 93 Oxygen Delivery Method Room Air 12/09/22 21:00 12/09/22 21:30 12/09/22 21:30 Temperature Pulse Rate 92 H 89 Respiratory Rate 19 15 Blood Pressure 121/75 Pulse Oximetry 93 94 Oxygen Delivery Method Room Air Room Air Oxygen Delivery Method Room Air Narrative Exam Narrative: He is alert and oriented x3, relatively calm.? He has normal judgment and regular speech. ? Head is atraumatic.? Eyes are notable for symmetric pupils and anicteric sclera. ? Neck is supple with normal range of motion, normal thyroid.? No adenopathy. ? Lungs are clear to auscultation with normal rate and effort. ? Heart is regular in rate and rhythm, with out murmur. ? Abdomen is soft, non-distended.? No focal tenderness, guarding or rebound. ? Extremities are free of edema with good pedal pulses. ? Skin is free of rash, or lesions. ? Muscles with normal tone, joints are negative for deformity. ? Neurologically patient has normal cranial nerves and normal motor strength in all extremities. Objective Labs 12/09/22 19:00 12/09/22 19:00 Labs: Laboratory Results - last 24 hr 12/09/22 12/09/22 12/09/22 19:00 19:00 19:00 WBC 11.9 H RBC 4.01 L Hgb 13.2 L Hct 38.5 L MCV 96.0 MCH 33.0 MCHC 34.4 RDW 12.6 Plt Count 250 Neut % (Auto) 76.1 H Lymph % (Auto) 18.7 L [place] % (Auto) 4.2 Eos % (Auto) 0.4 L Baso % (Auto) 0.6 Neut # (Auto) 9100 H Lymph # (Auto) 2200 [place] # (Auto) 500 Eos # (Auto) 0 Baso # (Auto) 100 PT 14.3 H INR 1.2 APTT 27 Sodium 139 Potassium 3.9 Chloride 104 Carbon Dioxide 24 BUN 46 H Creatinine 0.82 Estimated GFR > 60 BUN/Creatinine Ratio 56.1 H Glucose 141 H Calcium 9.2 Total Bilirubin 1.3 AST 38 ALT 26 Alkaline Phosphatase 66 Total Protein 7.4 Albumin 4.4 Globulin 3.0 Albumin/Globulin Ratio 1.5 Blood Type Antibody Screen 12/09/22 19:00 WBC RBC Hgb Hct MCV MCH MCHC RDW Plt Count Neut % (Auto) Lymph % (Auto) [place] % (Auto) Eos % (Auto) Baso % (Auto) Neut # (Auto) Lymph # (Auto) [place] # (Auto) Eos # (Auto) Baso # (Auto) PT INR APTT Sodium Potassium Chloride Carbon Dioxide BUN Creatinine Estimated GFR BUN/Creatinine Ratio Glucose Calcium Total Bilirubin AST ALT Alkaline Phosphatase Total Protein Albumin Globulin Albumin/Globulin Ratio Blood Type O Positive Antibody Screen Negative Assessment & Plan Assessment & Plan narrative: 1. Hematemesis and melena consistent with upper GI, present on admission and active. The plan is NPO, IV fluids and hemoglobin hematocrit every 4 hours. Transfuse if meets threshold. General surgery will see the patient in the morning he will undergo EGD. Protonix q.12 hours in the meantime. 2. Chronic neck and shoulder pain, present on admission and active. Oral pain medications as needed. The patient is full resuscitation, this is confirmed tonight. The patient is admitted to inpatient status, there is an expectation of 2 midnights of medically necessary hospital level care. Time Spent With Patient Time with patient: 30 to 49 minutes with 50% spent counseling/coordinating care
[2022-12-09 21:50] LABS: Hematocrit 37.3 % (41-53); Hemoglobin 12.8 g/dL (13.5-17.5)
[2022-12-09 21:58] LABS: INR 1.3 (0.9-1.3); Prothrombin Time 14.6 SECONDS (10.1-12.7)
[2022-12-09 22:03] LABS: BUN Creatinine Ratio 61.4 (6-22); Blood Urea Nitrogen 43 mg/dL (9-20); Calcium 9.1 mg/dL (8.4-10.2); Carbon Dioxide 26 mmol/L (22-32); Chloride 105 mmol/L (98-107); Estimated Glomerular Filt Rate > 60 mL/min (>60); Glucose 118 mg/dL (80-110); Sodium 138 mmol/L (137-145)
[2022-12-09 22:04] LABS: HEMOLYSIS 55 (0-50); Potassium 4.2 mmol/L (3.4-5.1)
[2022-12-09] MEDS: ONDANSETRON 4 MG/2 ML INJ IV (22:14)
[2022-12-09] MEDS: DEXTROSE 5%-0.9% NS 1,000 ML 100 ML IV (22:16)
[2022-12-09] MEDS: MELATONIN 3 MG TABLET 6 MG PO (23:17)
--- NOTE | 2022-12-09 23:23 | PC.ADMIT ---
[email or web address] Tc Garay PMB [id number] Admission Note: The patient,Keon Montesinos,67 y/o, was given written information regarding hospital policies, unit procedures and contact persons. Patient's smoking status: Never smoker. Vital Signs - 8 hr 12/09/22 18:46 12/09/22 18:55 12/09/22 19:00 Temperature 98.7 F Pulse Rate 105 H 99 H 96 H Respiratory Rate 15 23 16 Blood Pressure 105/71 Pulse Oximetry 97 96 96 Oxygen Delivery Method Room Air 12/09/22 19:04 12/09/22 19:04 12/09/22 19:30 Temperature Pulse Rate 97 H Respiratory Rate 19 Blood Pressure 114/73 117/71 Pulse Oximetry 96 Oxygen Delivery Method Room Air 12/09/22 19:30 12/09/22 20:00 12/09/22 20:00 Temperature Pulse Rate 97 H 89 Respiratory Rate 21 21 Blood Pressure 121/74 Pulse Oximetry 94 93 Oxygen Delivery Method Room Air Room Air 12/09/22 20:30 12/09/22 20:30 12/09/22 21:00 Temperature Pulse Rate 99 H Respiratory Rate 16 Blood Pressure 109/71 111/76 Pulse Oximetry 93 Oxygen Delivery Method Room Air 12/09/22 21:00 12/09/22 21:30 12/09/22 21:30 Temperature Pulse Rate 92 H 89 Respiratory Rate 19 15 Blood Pressure 121/75 Pulse Oximetry 93 94 Oxygen Delivery Method Room Air Room Air 12/09/22 22:32 Temperature Pulse Rate Respiratory Rate Blood Pressure Pulse Oximetry Oxygen Delivery Method Room Air Patient admitted to room 212 around 2200 from ER per wheelchair. Assisted to bathroom to void and patient reportedly tachycardic on quality assurance monitor chassis with rate to 130. Patient became nauseated, complained of dizziness and was diaphoretic. Sat on edge of bed and SBP was 97. Medicated with Zofran and after 15 nausea was resolved, no longer dizzy, HR down to 107 and SBP 102. Patient is alert and oriented. Breath sounds CTA. HRR w/telemetry reading of SR. BT present and abdomen is soft but does complain of 2/10 tenderness in bilateral lower abdomen. States he had a black stool earlier and vomited in ER; coffee ground emesis. Denies dysuria, frequency or urgency with urination. Is able to turn himself in bed. Generalized weakness. Bilateral calf SCD's applied. Is on continuous oximetry as orders. Patient requesting ice chips and Melatonin so call placed to Dr. Byrd and order received for Melatonin and patient may have ice chips. Fall risk score is moderate and bed alarm is activated. Patient verbalizes understanding that he needs assistance when getting out of bed. Oriented to call light and bed controls.
[2022-12-10] VITALS (16 sets, daily range): BP systolic 95–124; BP diastolic 43–83; PULSE 63–77; RESP 13–19; TEMP 36.3–37.4; O2SAT 92–99; BMI 29.5
--- NOTE | 2022-12-10 | PATH_ITS ---
[facility] Accession Number: [id number] No. of containers..01 Tissue . 01 Material submitted: . gastrointestinal site - GASTRIC BIOPSY . 01 Clinical history: . H.PYLORI . 01 Diagnosis: Gastric, Biopsy: Gastric mucosa with mild chronic inflammation. No Helicobacter pylori organisms identified on immunohistochemical evaluation. No intestinal metaplasia, dysplasia or malignancy. [facility] 12/18/2022 1132 Local . 01 Electronically signed: . Padmaja Pisano MD, Pathologist NPI- [id number] . 01 Gross description: . The specimen is received in formalin labeled with the patient's name, , and gastric BX for H. pylori consists of two samuel soft tissue fragments ranging from 0.2 to 0.3 cm in greatest dimension. Submitted entirely in cassette A1. ([id number]) /MRV 12/16/2022 1706 Local . 01 Microscopic: . An immunohistochemical stain was performed to evaluate for Helicobacter organisms and is negative. The control stain showed appropriate reactivity. . . * This test was developed and its performance characteristics determined by [facility]. It has not been cleared or approved by the U.S. Food and Drug Administration. The FDA has determined that such clearance or approval is not necessary. This test is used for clinical purposes. It should not be regarded as investigational or for research. . 01 Pathologist provided ICD-10: K29.70 . 01 CPT . 995195, Q05697 Performed at: 01 [facility] [address] [place] [address] [facility], [place], [place] [id number] MD Thomas Junior MD Phone: [phone]
--- NOTE | 2022-12-10 07:16 | P.CONS_ITS ---
History of Present Illness Consult details Date Patient Seen: 12/10/22 Time Patient Seen: 07:16 Chief complaint: Vomiting blood/black stool/hist. of ulcers Reason for consult: upper GI bleed Requesting provider: Flip Sr Narrative: Patient with h/o gastric ulcers presented to ED with vomiting blood and dark stools duration of 24 hrs. Not currently on PPI or anticoagulant. Epigastric discomfort for 2-3 days, last gastric ulcer was 5 yrs ago. Meds Home Medications and Allergies Home Medications Medication Instructions Recorded Confirmed Type uooqumtk-dep-fosnx acid 300 1 tab PO DAILY 05/26/22 12/09/22 History mcg-lycopene 600 mcg-lutein 300 mcg tablet (Centrum Silver Men) psyllium husk 0.52 gram capsule 0.52 g PO DAILY 05/26/22 12/09/22 History (Fiber-Caps (psyllium husk)) vitamin D3 125 mcg (5,000 1 tab PO QWEEK 05/26/22 12/09/22 History unit)-folic acid 1 mg tablet glucosamine sulf dipot 1 cap PO 12/09/22 History chlr,msm,chond 550 mg-C 30 mg-yamileth 1 mg capsule (Glucosamine Chondroitin) Allergies Allergy/AdvReac Type Severity Reaction Status Date / Time No Known Drug Allergies Allergy Verified 12/09/22 18:54 Review of Systems Review of Systems ROS: Yes All systems reviewed with the patient and are negative except as otherwise documented Exam Vital Signs (past 8 hours): - 12/10/22 02:05 12/10/22 05:55 Temperature 99.3 F 98.7 F Pulse Rate 75 65 Respiratory Rate 18 18 Blood Pressure 95/53 L 105/59 L Pulse Oximetry 95 98 Oxygen Flow Rate 0 0 Oxygen Delivery Method Room Air Oxygen Flow Rate 0 Const General: cooperative and comfortable Nutritional Appearance: well nourished [facility] Head: normal to inspection, normocephalic and atraumatic Eyes General: appearance normal, both eyes and all related structures Sclera: sclerae normal Neck Neck: trachea midline Chest Chest: normal inspection of the chest Resp Effort & Inspection: normal respiratory effort and able to speak in complete sentences Cardio Rate: regular rate Rhythm: regular rhythm GI Palpation: soft Skin General: atrophy Hair: brittle and general thinning Neuro Cognition: normal cognition Psych Appearance: grossly normal Mental Status: mental status grossly normal Judgment: judgment good Objective Labs 12/09/22 21:41 12/09/22 21:41 Labs: Laboratory Results - last 24 hr 12/09/22 12/09/22 12/09/22 19:00 19:00 19:00 WBC 11.9 H RBC 4.01 L Hgb 13.2 L Hct 38.5 L MCV 96.0 MCH 33.0 MCHC 34.4 RDW 12.6 Plt Count 250 Neut % (Auto) 76.1 H Lymph % (Auto) 18.7 L [place] % (Auto) 4.2 Eos % (Auto) 0.4 L Baso % (Auto) 0.6 Neut # (Auto) 9100 H Lymph # (Auto) 2200 [place] # (Auto) 500 Eos # (Auto) 0 Baso # (Auto) 100 PT 14.3 H INR 1.2 APTT 27 Sodium 139 Potassium 3.9 Chloride 104 Carbon Dioxide 24 BUN 46 H Creatinine 0.82 Estimated GFR > 60 BUN/Creatinine Ratio 56.1 H Glucose 141 H Calcium 9.2 Total Bilirubin 1.3 AST 38 ALT 26 Alkaline Phosphatase 66 Total Protein 7.4 Albumin 4.4 Globulin 3.0 Albumin/Globulin Ratio 1.5 Blood Type Antibody Screen 12/09/22 12/09/22 12/09/22 19:00 21:41 21:41 WBC RBC Hgb 12.8 L Hct 37.3 L MCV MCH MCHC RDW Plt Count Neut % (Auto) Lymph % (Auto) [place] % (Auto) Eos % (Auto) Baso % (Auto) Neut # (Auto) Lymph # (Auto) [place] # (Auto) Eos # (Auto) Baso # (Auto) PT INR APTT Sodium 138 Potassium 4.2 Chloride 105 Carbon Dioxide 26 BUN 43 H Creatinine 0.70 Estimated GFR > 60 BUN/Creatinine Ratio 61.4 H Glucose 118 H Calcium 9.1 Total Bilirubin AST ALT Alkaline Phosphatase Total Protein Albumin Globulin Albumin/Globulin Ratio Blood Type O Positive Antibody Screen Negative 12/09/22 21:41 WBC RBC Hgb Hct MCV MCH MCHC RDW Plt Count Neut % (Auto) Lymph % (Auto) [place] % (Auto) Eos % (Auto) Baso % (Auto) Neut # (Auto) Lymph # (Auto) [place] # (Auto) Eos # (Auto) Baso # (Auto) PT 14.6 H INR 1.3 APTT Sodium Potassium Chloride Carbon Dioxide BUN Creatinine Estimated GFR BUN/Creatinine Ratio Glucose Calcium Total Bilirubin AST ALT Alkaline Phosphatase Total Protein Albumin Globulin Albumin/Globulin Ratio Blood Type Antibody Screen [facility] Medical History Chronic back pain (~1979) Diverticular disease (~2009) Hearing loss History of fatty infiltration of liver (11/02/16) Iron deficiency anemia Lumbar disc disease (~1979) Obstructive sleep apnea Osteoarthritis of left knee (01/20/17) Shoulder pain (~1979) Tinnitus Surgical History Anesthesia History of knee surgery (~2012) Family History Father Stroke Diabetes mellitus Mother Age: 91 Breast cancer Social History household members: spouse Tobacco & Substance Use Smoking Status: Never smoker Assessment & Plan Assessment & Plan narrative: Upper GI bleed EGD with possible biopsy COVID-19 COVID-19 status: Negative
[2022-12-10] MEDS: LACTATED RINGERS 1,000 ML 42 ML IV (07:33)
--- NOTE | 2022-12-10 07:46 | PC.NURSE ---
Day shift: Pt off unit for procedure at approx 0730.
[2022-12-10 07:47] LABS: Hematocrit 32.3 % (41-53); Hemoglobin 11.5 g/dL (13.5-17.5)
--- NOTE | 2022-12-10 08:14 | PM.OP.EGD ---
Operative Date/Time/Diagnoses Date of procedure: 12/10/22 Time of procedure: 08:14 Pre-op diagnosis: GI bleed Post-op diagnosis: same Procedure & Clinicians Study performed: EGD with possible biopsy using general anesthetic Same procedure as scheduled: Yes Indications: GI bleed Surgeon: Shawanda Atkinson Procedure Notes Procedure in detail: Preop diagnosis: GI bleed Postop diagnosis: Same Operative procedure: EGD with cold forceps biopsy using general anesthetic Surgeon: Loyda Atkinson MD Findings: 0.5 cm pre-pyloric posterior gastric ulcer without active bleeding, duodenitis, small hiatal hernia Procedure: Patient placed in a lateral position. Anesthetic was provided. Scope was inserted into the esophagus and advanced to the stomach. I insufflated identified the pylorus and intubate into the duodenum. With insufflation extraction of the scope including retroflex I also was able to take cold forceps biopsies x3 of the antrum for H pylori. Patient tolerated the procedure well without complication Impression: Small gastric ulcer posterior pre-pyloric. Size of ulcer approximately 0.5 cm. Duodenitis in the 1st and 2nd portion of the duodenum. Small hiatal hernia Plan: B.i.d. PPI times 6-8 weeks. Follow-up with primary care physician to determine if lifelong PPI versus daily H2 grecia is warranted Findings: gastric ulcer, hiatal hernia and other findings (Duodenitis 1st and 2nd portion of duodenum) Specimen(s): other (Antral biopsies for H pylori) Complications: none Post-procedure Follow up: as needed Disposition: PACU
[2022-12-10] MEDS: PANTOPRAZOLE 40 MG VIAL IV ×2 (09:56→21:33)
[2022-12-10 10:00] LABS: BUN Creatinine Ratio 34.6 (6-22); Blood Urea Nitrogen 27 mg/dL (9-20); Calcium 8.3 mg/dL (8.4-10.2); Carbon Dioxide 22 mmol/L (22-32); Chloride 107 mmol/L (98-107); Estimated Glomerular Filt Rate > 60 mL/min (>60); Glucose 147 mg/dL (80-110); HEMOLYSIS < 15 (0-50); Potassium 3.7 mmol/L (3.4-5.1); Sodium 140 mmol/L (137-145)
--- NOTE | 2022-12-10 10:23 | CM.DANOTE ---
DCP: Case received, EMR reviewed, and met with patient. Introduced self and role. Was able to obtain information regarding baseline activity status prior to hospitalization. DCP assessment completed with information currently available. Patient was admitted yesterday evening to the care of the hospitalist team. PCP: Dr. Navarro ( no longer in the clinic, patient will be assigned a new provider). Payer: confirmed: Medicare/[employer]. Patient came to the hospital via private vehicle secondary to having episodes of black stool, coffee ground emesis. Patient has history of GI bleeds, patient indicated that his last bleed was about 7 years ago. Patient is scheduled for EGD today, has surgery consult. Patient was diagnosed with Hematemesis and melena consistent with upper GI bleed. Met with patient in his room. Patient is alert and oriented, confirmed that he resides here in [place] with spouse, Jolene. He is independent at his baseline. He knows that he will be assigned a new provider at the clinic, not sure who he will be seeing as of yet. Patient has already had his procedure. P: DCP to continue to follow. Plan is to discharge home when stable, could potentially be today, will need to follow up with primary care provider. Kari Barrios RN/[place] Discharge Planning/Care Management CM Discharge Assessment Start: 12/10/22 09:33 Freq: Status: Active Protocol: Document 12/10/22 09:33 (Rec: 12/10/22 09:36 [id number]) Discharge Planning Assessment Assigned Log Cutter Kari Barrios RN/[place] Advance Directives? No History Provided By Patient,Medical Record Has Patient been admitted in last 30 No days? Prior Living Arrangements House Household Members spouse Type of transporation used prior to Drives own vehicle admit Independent with ADL's Yes Is patient alert and oriented? Yes Caregiver for Another No Barriers to Discharge No Transportation Arrangement Spouse Referrals Initiated None needed Whiteboard Updated in Patient Room with Yes name and ext. # of Log Cutter Review Status In Process Next Review Type Continued Stay Review
[2022-12-10 14:44] LABS: Hematocrit 30.9 % (41-53)
[2022-12-10] MEDS: ACETAMINOPHEN 325 MG TABLET 650 MG PO ×2 (15:32→21:33)
--- NOTE | 2022-12-10 16:06 | PC.NURSE ---
Day shift: Pt ambulated in halls around the entire AC unit with this check writer. Tolerated well and denied any SOB or dizziness. Back in room and in bed. Call light in reach.
--- NOTE | 2022-12-10 17:03 | PM.PN.1 ---
Subjective Subjective Interval history: 67 M admitted with acute blood loss anemia secondary to gastric ulcer found on EGD today with general surgery. H/h slowly downtrending this afternoon, he denies complaints today and has had no bowel movements thus far. Exam Vital Signs (past 8 hours): - 12/10/22 09:15 12/10/22 09:45 12/10/22 10:45 Temperature 98 F 98.2 F 98 F Pulse Rate 76 68 63 Respiratory Rate 18 18 18 Blood Pressure 120/81 106/43 L 106/57 L Pulse Oximetry 96 95 97 Oxygen Flow Rate 0 0 0 12/10/22 12:57 12/10/22 15:41 Temperature 98 F 98.6 F Pulse Rate 77 72 Respiratory Rate 18 18 Blood Pressure 106/65 122/64 Pulse Oximetry 96 97 Oxygen Flow Rate 0 0 Oxygen Delivery Method Room Air Oxygen Flow Rate 0 Narrative Exam Narrative: He is alert and oriented x3, relatively calm.? He has normal judgment and regular speech. ? Head is atraumatic.? Eyes are notable for symmetric pupils and anicteric sclera. ? Neck is supple with normal range of motion, normal thyroid.? No adenopathy. ? Lungs are clear to auscultation with normal rate and effort. ? Heart is regular in rate and rhythm, with out murmur. ? Abdomen is soft, non-distended.? No focal tenderness, guarding or rebound. ? Extremities are free of edema with good pedal pulses. ? Skin is free of rash, or lesions. ? Muscles with normal tone, joints are negative for deformity. ? Neurologically patient has normal cranial nerves and normal motor strength in all extremities. Objective Labs 12/10/22 14:39 12/10/22 09:34 Labs: Laboratory Results - last 24 hr 12/09/22 12/09/22 12/09/22 19:00 19:00 19:00 WBC 11.9 H RBC 4.01 L Hgb 13.2 L Hct 38.5 L MCV 96.0 MCH 33.0 MCHC 34.4 RDW 12.6 Plt Count 250 Neut % (Auto) 76.1 H Lymph % (Auto) 18.7 L [place] % (Auto) 4.2 Eos % (Auto) 0.4 L Baso % (Auto) 0.6 Neut # (Auto) 9100 H Lymph # (Auto) 2200 [place] # (Auto) 500 Eos # (Auto) 0 Baso # (Auto) 100 PT 14.3 H INR 1.2 APTT 27 Sodium 139 Potassium 3.9 Chloride 104 Carbon Dioxide 24 BUN 46 H Creatinine 0.82 Estimated GFR > 60 BUN/Creatinine Ratio 56.1 H Glucose 141 H Calcium 9.2 Total Bilirubin 1.3 AST 38 ALT 26 Alkaline Phosphatase 66 Total Protein 7.4 Albumin 4.4 Globulin 3.0 Albumin/Globulin Ratio 1.5 Blood Type Antibody Screen 12/09/22 12/09/22 12/09/22 19:00 21:41 21:41 WBC RBC Hgb 12.8 L Hct 37.3 L MCV MCH MCHC RDW Plt Count Neut % (Auto) Lymph % (Auto) [place] % (Auto) Eos % (Auto) Baso % (Auto) Neut # (Auto) Lymph # (Auto) [place] # (Auto) Eos # (Auto) Baso # (Auto) PT INR APTT Sodium 138 Potassium 4.2 Chloride 105 Carbon Dioxide 26 BUN 43 H Creatinine 0.70 Estimated GFR > 60 BUN/Creatinine Ratio 61.4 H Glucose 118 H Calcium 9.1 Total Bilirubin AST ALT Alkaline Phosphatase Total Protein Albumin Globulin Albumin/Globulin Ratio Blood Type O Positive Antibody Screen Negative 12/09/22 12/10/22 12/10/22 21:41 06:20 09:34 WBC RBC Hgb 11.5 L Hct 32.3 L MCV MCH MCHC RDW Plt Count Neut % (Auto) Lymph % (Auto) [place] % (Auto) Eos % (Auto) Baso % (Auto) Neut # (Auto) Lymph # (Auto) [place] # (Auto) Eos # (Auto) Baso # (Auto) PT 14.6 H INR 1.3 APTT Sodium 140 Potassium 3.7 Chloride 107 Carbon Dioxide 22 BUN 27 H Creatinine 0.78 Estimated GFR > 60 BUN/Creatinine Ratio 34.6 H Glucose 147 H Calcium 8.3 L Total Bilirubin AST ALT Alkaline Phosphatase Total Protein Albumin Globulin Albumin/Globulin Ratio Blood Type Antibody Screen 12/10/22 14:39 WBC RBC Hgb 11.0 L Hct 30.9 L MCV MCH MCHC RDW Plt Count Neut % (Auto) Lymph % (Auto) [place] % (Auto) Eos % (Auto) Baso % (Auto) Neut # (Auto) Lymph # (Auto) [place] # (Auto) Eos # (Auto) Baso # (Auto) PT INR APTT Sodium Potassium Chloride Carbon Dioxide BUN Creatinine Estimated GFR BUN/Creatinine Ratio Glucose Calcium Total Bilirubin AST ALT Alkaline Phosphatase Total Protein Albumin Globulin Albumin/Globulin Ratio Blood Type Antibody Screen [facility] Medical History Chronic back pain (~1979) Diverticular disease (~2009) Hearing loss History of fatty infiltration of liver (11/02/16) Iron deficiency anemia Lumbar disc disease (~1979) Obstructive sleep apnea Osteoarthritis of left knee (01/20/17) Shoulder pain (~1979) Tinnitus Surgical History Anesthesia History of knee surgery (~2012) Family History Father Stroke Diabetes mellitus Mother Age: 91 Breast cancer Social History household members: spouse Smoking Status: Never smoker Assessment & Plan Assessment & Plan narrative: 1. Acute blood loss anemia secondary to bleeding gastric ulcer. - this is a recurrent gastric ulcer for the patient. Biopsies sent by general surgery. EGD showing gastric ulcer and some duodenitis. - h/h slowly trending down to 11.0 this afternoon, will continue to monitor. His diet was advanced which he is tolerating. No significant chemistry abnormalities on labwork today. - once h/h stabilizes he can discharge home on oral PPI BID for 6-8 weeks per surgery recommendations. 2. Chronic neck and shoulder pain, present on admission and active. Oral pain medications as needed. The patient is full resuscitation, this is confirmed tonight. Surrogate is patient's spouse. The patient is admitted to inpatient status, there is an expectation of 2 midnights of medically necessary hospital level care. Discussed plan of care with patient. Discussed case with general surgery provider today. Time Spent With Patient Time with patient: 30 to 49 minutes with 50% spent counseling/coordinating care
[2022-12-10] MEDS: MELATONIN 3 MG TABLET 6 MG PO (21:33)
[2022-12-10] MEDS: OXYCODONE IR 5 MG TABLET PO (21:34)
[2022-12-11 05:19] VITALS: BP 103/61; PULSE 73; RESP 17; TEMP 36.7; O2SAT 96
[2022-12-11 06:18] LABS: Add Manual Diff / Slide Review NO; Basophils Absolute Auto 100 /uL (0-100); Basophils Percent Auto 0.8 % (0-2); Eosinophils Absolute Auto 200 /uL (0-450); Eosinophils Percent Auto 2.9 % (2-4); Hematocrit 30.2 % (41-53); Hemoglobin 10.6 g/dL (13.5-17.5); Lymphocytes Absolute Auto 2700 /uL (1100-4500); Lymphocytes Percent Auto 36.1 % (25-40); Mean Corpuscular HGB Conc 35.2 % (30-36); Mean Corpuscular Hemoglobin 33.8 PG (26-34); Mean Corpuscular Volume 95.9 fL (80-100); Monocytes Absolute Auto 500 /uL (0-900); Neutrophils Absolute Auto 4100 /uL (1500-7000); Neutrophils Percent Auto 54.2 % (50-75); Platelet Count 196 X10^3/uL (150-400); Red Blood Cell Count 3.15 X10^6/uL (4.5-5.9); Red Cell Distribution Width 12.7 % (11.6-14.8); White Blood Cell Count 7.5 X10^3/uL (4.5-11.0)
[2022-12-11 08:00] VITALS: BP 114/72; PULSE 75; RESP 18; TEMP 37.1; O2SAT 95
[2022-12-11] MEDS: PANTOPRAZOLE 40 MG VIAL IV (08:54)
--- NOTE | 2022-12-11 09:28 | PC.NURSE ---
Day shift: Dr Denney informed of black tarry stool this AM and no guiac needed.
[2022-12-11 12:00] VITALS: BP 107/70; PULSE 67; RESP 18; TEMP 36.3; O2SAT 96
[2022-12-11 12:11] LABS: Hematocrit 30.2 % (41-53); Hemoglobin 10.5 g/dL (13.5-17.5)
--- NOTE | 2022-12-11 13:56 | P.DS_ITS ---
History of Present Illness History of Present Illness Date Patient Seen: 12/11/22 Time Patient Seen: 13:57 Chief complaint: Vomiting blood/black stool/hist. of ulcers Narrative: Per admitting provider, The patient is a 67 year current melena and coffee-ground emesis. He is had 3 days of some midepigastric irritation. He has a history of GI bleeding with melena 3 or 4 times in the past, each associated with gastric ulcers. He has h ad new send the scopes and colonoscopies. The patient arrived to the emergency department by car as [place] nearby. He had normal vital signs and was not tachycardic or hypotensive. His initial hemoglobin was 13.2. The patient was discussed with Dr. Atkinson of surgery and will be started on IV Protonix every 12 hours. The patient denies any chest pain and has a very small amount of dyspnea. He denies the use of nonsteroidal anti-inflammatory agents and uses only for pain. He has no other medical problems other than chronic neck and shoulder pain. He takes no prescription medications last GI bleed was approximately 5 years ago. Discharge Providers Provider Date of admission: 12/09/22 21:25 Discharge Date: 12/11/22 Primary care physician: Mo Navarro MD Consults: 12/09/22 20:56 Consult to General Surgery Stat Comment: Consulting Provider: Shawanda Atkinson Reason for consultation: GI bleed Has provider been notified: Yes 12/09/22 21:29 Consult to Physician Routine Comment: Consulting Provider: Shawanda Atkinson Reason for consultation: Melena Has provider been notified: Yes Discharge provider: Mauro Denney DO Summary Hospital Course Discharge Diagnosis: 1. Acute blood loss anemia secondary to bleeding gastric ulcer. ?- this is a recurrent gastric ulcer for the patient. Biopsies sent by general surgery. EGD showing gastric ulcer and some duodenitis. ?- h/h slowly trending down to 11.0 this afternoon, will continue to monitor. His diet was advanced which he is tolerating. No significant chemistry abnormalities on labwork today. ?- once h/h stabilizes he can discharge home on oral PPI BID for 6-8 weeks per surgery recommendations. 2. Chronic neck and shoulder pain, present on admission and active.? Oral pain medications as needed. Hospital Course: This is a 67 year old male with PMH of peptic ulcer disease who was admitted with acute blood loss anemia and melena. Source was determined to be a gastric ulcer after EGD was performed by general surgery. He had one other melenotic stool during his stay, but stopped on the day of discharge. His Hg trended down until stabilizing at around 10.5. He was eating and tolerating a diet without further symptoms. He was discharged with 8 weeks of PPI BID recommended by general surgery, and should follow up with his primary care for ongoing ulcer prevention after completion of therapy. Time Spent with Patient Time spent: Greater than 30 minutes Exam Vital Signs (past 8 hours): - 12/11/22 08:00 12/11/22 12:00 Temperature 98.8 F 97.4 F L Pulse Rate 75 67 Respiratory Rate 18 18 Blood Pressure 114/72 107/70 Pulse Oximetry 95 96 Oxygen Flow Rate 0 0 Oxygen Delivery Method Room Air Oxygen Flow Rate 0 Narrative Exam Narrative: He is alert and oriented x3, relatively calm.? He has normal judgment and regular speech. ? Head is atraumatic.? Eyes are notable for symmetric pupils and anicteric sclera. ? Neck is supple with normal range of motion, normal thyroid.? No adenopathy. ? Lungs are clear to auscultation with normal rate and effort. ? Heart is regular in rate and rhythm, with out murmur. ? Abdomen is soft, non-distended.? No focal tenderness, guarding or rebound. ? Extremities are free of edema with good pedal pulses. ? Skin is free of rash, or lesions. ? Muscles with normal tone, joints are negative for deformity. ? Neurologically patient has normal cranial nerves and normal motor strength in all extremities. Objective Labs 12/11/22 12:00 12/10/22 09:34 Labs: Laboratory Results - last 24 hr 12/10/22 12/11/22 12/11/22 14:39 05:44 12:00 WBC 7.5 RBC 3.15 L Hgb 11.0 L 10.6 L 10.5 L Hct 30.9 L 30.2 L 30.2 L MCV 95.9 MCH 33.8 MCHC 35.2 RDW 12.7 Plt Count 196 Neut % (Auto) 54.2 D Lymph % (Auto) 36.1 [place] % (Auto) 6.0 Eos % (Auto) 2.9 Baso % (Auto) 0.8 Neut # (Auto) 4100 Lymph # (Auto) 2700 [place] # (Auto) 500 Eos # (Auto) 200 Baso # (Auto) 100 PFSH Medical History Chronic back pain (~1979) Diverticular disease (~2009) Hearing loss History of fatty infiltration of liver (11/02/16) Iron deficiency anemia Lumbar disc disease (~1979) Obstructive sleep apnea Osteoarthritis of left knee (01/20/17) Shoulder pain (~1979) Tinnitus Surgical History Anesthesia History of knee surgery (~2012) Family History Father Stroke Diabetes mellitus Mother Age: 91 Breast cancer Social History household members: spouse Smoking Status: Never smoker Discharge Plan Discharge Plan Patient Disposition: Home Provider Discharge Comment: You were admitted to the hospital with a stomach ulcer. Bleeding appears to have stopped, but do not hesistate to return if black stools do not lighten up, stools change to bright red, or you become weak, dizzy, fatigued, or short of breath. Please follow up with your primary care provider within 1 month to review hospitalization and for further management of PPI in the future. Discharge orders & Medications Prescriptions: New pantoprazole 40 mg tablet,delayed release (DR/EC) 40 mg PO BID 56 Days Qty: 112 0RF Continued psyllium husk [Fiber-Caps (psyllium husk)] 0.52 gram capsule 0.52 g PO DAILY Centrum Silver Men 300-600-300 mcg tablet 1 tab PO DAILY vitamin D3-folic acid 125 mcg (5,000 unit)-1 mg tablet 1 tab PO QWEEK Glucosamine Chondroitin 550-30-1 mg Capsule 1 cap PO DAILY Follow up/Referrals: Mo Navarro MD [Primary Care Provider] - (*Appt on Wednesday, November at 10:00Am with Please check-in at 09:45am. (Dr. Navarro is no longer at [facility]). [phone]) Diet/Activity/Treatments Diet: Diet as Tolerated and Regular Activity: As tolerated, no restrictions Visit Report/Discharge Packet Instructions: Hemoglobin, Hematocrit, DI for Gastric Ulcer Stand Alone Forms: Patient Portal/API, Stroke Signs & Symptoms, EGD Result: [facility], EGD Result: [facility] Discharge Data Primary Care Provider: Mo Navarro Discharges patient from system. Discharge Date/Time: 12/11/22 14:55
--- NOTE | 2022-12-11 14:47 | PC.NURSE ---
Day shift: Paperwork signed and all questions answered. Pt ambulated to car with LASHAWN Alex at approx 1500. Pt's Spouse is driving him home. New MD script sent electronic to Pt's pharmacy. Pt has all personal belongings. VS remain WNL. RA 98%. Denies any pain or nausea today.
== END 2022-12-11 14:55 | disposition home or self-care (01) | DRG 378 ==
LOC: ED 21:09 → AC 21:10
PROVIDERS: Internal Medicine; Surgery; Admitting Provider Hospitalist; Emergency Provider Emergency Medicine; PCP Student in an Organized Health Care Education/Training Program; Referring Provider Emergency Medicine; Visit Provider Hospitalist
PROC: 0DJ08ZZ Inspection of Upper Intestinal Tract, Via Natural or Artificial Opening Endoscopic (ICD-10-PCS; CPT 43235; principal; 2022-12-10 07:45)
DX: K25.4 Chronic or unspecified gastric ulcer with hemorrhage (principal); D62 Acute posthemorrhagic anemia; G89.29 Other chronic pain; M54.2 Cervicalgia; M25.519 Pain in unspecified shoulder; Z20.822 Contact with and (suspected) exposure to COVID-19
CPT/HCPCS: 36415; 43239; 80048; 80053; 85014; 85018; 85025; 85610; 85730; 86850; 86900; 86901; 93005; 96374; 99231; 99284; G0378; C9113; J2405

== ENCOUNTER → 2024-01-28 09:44 | Outpatient (CLI) | payer MEDICARE, OTHER, SELFPAY ==
[2022-12-09 22:25] VITALS: BMI 29.4
[2024-01-28 10:43] LABS: Add Manual Diff / Slide Review NO; Basophils Absolute Auto 0 /uL (0-100); Basophils Percent Auto 0.8 % (0-2); Eosinophils Absolute Auto 100 /uL (0-450); Eosinophils Percent Auto 2.3 % (2-4); Hematocrit 43.4 % (41-53); Hemoglobin 15.1 g/dL (13.5-17.5); Lymphocytes Absolute Auto 1800 /uL (1100-4500); Lymphocytes Percent Auto 34.5 % (25-40); Mean Corpuscular HGB Conc 34.8 % (30-36); Mean Corpuscular Hemoglobin 34.1 PG (26-34); Mean Corpuscular Volume 98.1 fL (80-100); Monocytes Absolute Auto 400 /uL (0-900); Monocytes Percent Auto 8.1 % (3-14); Neutrophils Absolute Auto 2900 /uL (1500-7000); Neutrophils Percent Auto 54.3 % (50-75); Platelet Count 227 X10^3/uL (150-400); Red Blood Cell Count 4.42 X10^6/uL (4.5-5.9); Red Cell Distribution Width 13.3 % (11.6-14.8); White Blood Cell Count 5.3 X10^3/uL (4.5-11.0)
[2024-01-28 11:06] LABS: Hemoglobin A1C% w Est Avg Glu 5.8 % (4.0-6.0)
[2024-01-28 11:17] LABS: Alanine Aminotransferase 37 IU/L (<50); Albumin 4.7 g/dL (3.5-5.0); Albumin Globulin Ratio 1.7 (1.0-2.8); Alkaline Phosphatase 80 U/L (38-126); Aspartate Aminotransferase 34 IU/L (17-59); BUN Creatinine Ratio 24.4 (6-22); Bilirubin Total 2.3 mg/dL (0.2-1.3); Blood Urea Nitrogen 20 mg/dL (9-20); Calcium 9.4 mg/dL (8.4-10.2); Carbon Dioxide 21 mmol/L (22-32); Chloride 108 mmol/L (98-107); Cholesterol 160 mg/dL (140-199); Estimated Glomerular Filt Rate > 60 mL/min (>60); Globulin 2.7 g/dL (1.7-4.1); Glucose 104 mg/dL (80-110); HDL Cholesterol 40 mg/dL (40-60); HEMOLYSIS < 15 (0-50); LDL Cholesterol Calculated 95 mg/dL (<100); Potassium 4.6 mmol/L (3.4-5.1); Sodium 139 mmol/L (137-145); Total Protein 7.4 g/dL (6.3-8.2); Triglycerides 126 mg/dL (35-150)
[2024-01-28 11:30] LABS: TSH w/ Reflex to FT4 1.02 uIU/mL (0.47-4.68)
== END ==
PROVIDERS: PCP Student in an Organized Health Care Education/Training Program; Referring Provider Student in an Organized Health Care Education/Training Program; Visit Provider Student in an Organized Health Care Education/Training Program
DX: K92.2 Gastrointestinal hemorrhage, unspecified (principal); Z13.1 Encounter for screening for diabetes mellitus; Z13.6 Encounter for screening for cardiovascular disorders; R20.2 Paresthesia of skin; D50.9 Iron deficiency anemia, unspecified; Z13.220 Encounter for screening for lipoid disorders; Z13.29 Encounter for screening for other suspected endocrine disorder; R53.83 Other fatigue
CPT/HCPCS: 36415; 80053; 80061; 83036; 84443; 85025

== ENCOUNTER → 2024-02-09 15:19 | Outpatient (CLI) | payer MEDICARE, OTHER, SELFPAY ==
[2022-12-09 22:25] VITALS: BMI 29.4
[2024-02-09 17:13] LABS: Alanine Aminotransferase 31 IU/L (<50); Albumin 4.6 g/dL (3.5-5.0); Albumin Globulin Ratio 1.8 (1.0-2.8); Alkaline Phosphatase 81 U/L (38-126); Aspartate Aminotransferase 42 IU/L (17-59); BUN Creatinine Ratio 18.9 (6-22); Bilirubin Direct 0.4 mg/dL (0.0-0.4); Bilirubin Total 1.8 mg/dL (0.2-1.3); Blood Urea Nitrogen 17 mg/dL (9-20); Carbon Dioxide 20 mmol/L (22-32); Chloride 109 mmol/L (98-107); Estimated Glomerular Filt Rate > 60 mL/min (>60); Globulin 2.5 g/dL (1.7-4.1); Glucose 108 mg/dL (80-110); HEMOLYSIS < 15 (0-50); Potassium 4.1 mmol/L (3.4-5.1); Sodium 140 mmol/L (137-145); Total Protein 7.1 g/dL (6.3-8.2)
== END ==
PROVIDERS: PCP Student in an Organized Health Care Education/Training Program; Referring Provider Student in an Organized Health Care Education/Training Program; Visit Provider Student in an Organized Health Care Education/Training Program
DX: R17 Unspecified jaundice (principal)
CPT/HCPCS: 36415; 80053; 82248

== ENCOUNTER 2024-03-24 05:06 | Emergency (ER) | payer MEDICARE, OTHER, SELFPAY ==
[2022-12-09 22:25] VITALS: BMI 29.4
[2024-03-24 05:11] VITALS: BP 147/78; PULSE 61; RESP 20; TEMP 36.6; O2SAT 97; BMI 25.8
[2024-03-24] MEDS: PROPARACAINE 0.5% OPHTH SOL 1 DROPS EYE-LEFT (05:16)
[2024-03-24] MEDS: FLUORESCEIN 1 MG STRIP EYE-BOTH (05:17)
--- NOTE | 2024-03-24 05:19 | PC.NURSE ---
Left eye redness and irritation. Pt states that he is not sure what happened he just woke up in the middle of the night with pain, and irritation in his left eye. He mostly feels it on his eye lid area. He tried using eye wash and drops without success.
--- NOTE | 2024-03-24 05:31 | ED.SKABFB ---
HPI - Skin/Abscess/Foreign Bdy General Chief complaint: Skin/Abscess/Foreign Body Stated complaint: something in left eye Time Seen by Provider: 03/24/24 05:08 Source: patient Mode of arrival: Ambulatory History of Present Illness HPI narrative: Patient is a 68-year-old male. No prior history eye surgeries. Has not were contact lenses. No history of glaucoma. No history of cataracts who is here for evaluation of what he describes as foreign body in his left eye. Went to bed last night feeling fine. Woke up a couple hours prior to coming here in the emergency department and stated that he felt like something was of high. He use some Visine eyedrops and also an eye wash. States he still feels like there is something in his eye that it is under the upper eyelid on the nasal aspect. Related Data Home Medications Medication Instructions Recorded Confirmed uyluccxs-co-guukx 300 mcg-K 60 1 tab PO DAILY 05/26/22 03/20/24 mcg-lycop 600 mcg-lutein 300 mcg tablet (Centrum Silver Men) psyllium husk 0.52 gram capsule 0.52 g PO DAILY 05/26/22 03/20/24 (Fiber-Caps (psyllium husk)) vitamin D3 125 mcg (5,000 1 tab PO QWEEK 05/26/22 03/20/24 unit)-folic acid 1 mg tablet glucosamine sulf dipot 1 cap PO DAILY 12/09/22 03/20/24 chlr,msm,chond 550 mg-C 30 mg-yamileth 1 mg capsule (Glucosamine Chondroitin) Previous Rx's Medication Instructions Recorded albuterol sulfate 90 mcg/actuation 2 puff inhalation Q6H PRN 01/28/24 aerosol inhaler shortness of breath or wheezing #8.5 grams cyclobenzaprine 5 mg tablet 5 mg PO TID PRN muscle spasm #90 01/28/24 tabs erythromycin 5 mg/gram (0.5 %) eye 0.5 inch EYE-LEFT TID 2 days #3.5 03/24/24 ointment grams Allergies Allergy/AdvReac Type Severity Reaction Status Date / Time NSAIDS (Non-Steroidal Allergy Severe GI Bleed Verified 03/20/24 08:00 Anti-Inflamma Review of Systems Eyes Eyes: Reports system reviewed and no additional complaints, except as documented Patient History Medical History Lumbar spondylosis Osteoarthritis (arthritis due to wear and tear of joints) Degenerative disk disease Chronic pain Iron deficiency anemia Hearing loss Shoulder pain (~1979) Lumbar disc disease (~1979) Chronic back pain (~1979) Tinnitus Diverticular disease (~2009) Obstructive sleep apnea Osteoarthritis of left knee (01/20/17) History of fatty infiltration of liver (11/02/16) Surgical History (Updated 01/25/24 @ 13:56 by Joanna Cabrera MA) [place] teeth removed Anesthesia History of knee surgery (~2012) Family History Father Stroke Diabetes mellitus Mother Age: 92 Breast cancer Social History household members: spouse Smoking Status: Never smoker Smoking Status: Never smoker alcohol intake frequency: holidays/special occasions only Alcohol type: hard liquor Substance Use Type: does not use Exam Initial Vital Signs Initial Vital Signs: Vital Signs Temperature 97.9 F 03/24/24 05:11 Pulse Rate 61 03/24/24 05:11 Respiratory Rate 20 03/24/24 05:11 Blood Pressure 147/78 H 03/24/24 05:11 Pulse Oximetry 97 03/24/24 05:11 Oxygen Delivery Method Room Air 03/24/24 05:11 Eyes General: Yes appearance normal, both eyes and all related structures Periorbital: periorbital findings normal Eyelids: eyelids normal Conjunctivae: conjunctivae normal Cornea: corneas normal and fluorescein used Pupils: PERRL Other: Intra-ocular pressure left eye 15, in her ocular pressure right eye 15. No foreign body noted with direct visualization with the Wood's lamp and the magnifying glass. No foreign body noted with slit lamp. This is with both inversion and eversion of the upper and lower eyelids. Skin General: no rashes or lesions noted Course Orders Ordered: Discontinued Medications Fluorescein Sodium (Fluorescein 1 Mg Strip) 1 mg EYE-BOTH NOW ONE Stop: 03/24/24 05:09 Last Admin: 03/24/24 05:17 Dose: 1 mg Documented By: AB Proparacaine HCl (Proparacaine 0.5% Ophth Renita) 1 drops EYE-LEFT NOW ONE Stop: 03/24/24 05:09 Last Admin: 03/24/24 05:16 Dose: 1 drop Documented By: Vital Signs Vital signs: Vital Signs - 8 hr 03/24/24 05:11 Temperature 97.9 F Pulse Rate 61 Respiratory Rate 20 Blood Pressure 147/78 H Pulse Oximetry 97 Oxygen Delivery Method Room Air MDM - Skin/Abscess/Foreign Bdy MDM Narrative Medical decision making narrative: No foreign body noted on his exam today. There was no signs of corneal abrasion. Periorbital findings are unremarkable. He reports improvement of symptoms after the proparacaine drops. Low suspicion for glaucoma. No trauma to his eye. Plan will be is to put him on erythromycin ointment both for antibiotic coverage in case he did have a foreign body and also to provide soothing ointment to the eye as well. Will discharge patient home with a prescription for erythromycin. He was given return precautions and follow-up instructions. He expressed understanding and agreement with plan. Discharge Plan Departure Patient Disposition: Home Clinical Impression: Irritation of left eye Activity Restrictions/Additional Instructions: Use the erythromycin ointment as directed for the next 24-48 hours. If your symptoms worsen or he started develop worsening pain or irritation or redness around the eye please return to the emergency department for further evaluation. Prescriptions: New erythromycin 5 mg/gram (0.5 %) ointment 0.5 inch EYE-LEFT TID 2 Days Qty: 3.5 1RF No Action cyclobenzaprine 5 mg tablet 5 mg PO TID PRN (Reason: muscle spasm) Qty: 90 3RF albuterol sulfate 90 mcg/actuation HFA aerosol inhaler 2 puff inhalation Q6H PRN (Reason: shortness of breath or wheezing) Qty: 8.5 3RF psyllium husk [Fiber-Caps (psyllium husk)] 0.52 gram capsule 0.52 g PO DAILY Centrum Silver Men 300-600-300 mcg tablet 1 tab PO DAILY vitamin D3-folic acid 125 mcg (5,000 unit)-1 mg tablet 1 tab PO QWEEK Glucosamine Chondroitin 550-30-1 mg Capsule 1 cap PO DAILY Referrals: Mandie Porras MD [Primary Care Provider] - Stand Alone Forms: Patient Portal/API
[2024-03-24] MEDS: ERYTHROMYCIN OPHTH 1 GM OINT 1 APPLIC EYE-LEFT (05:33)
== END 2024-03-24 05:37 | disposition home or self-care (01) ==
PROVIDERS: Emergency Provider Emergency Medicine; PCP Student in an Organized Health Care Education/Training Program
DX: H57.12 Ocular pain, left eye (principal)
CPT/HCPCS: 99282